=== PATIENT | female | born 1955 | race Caucasian/White ===

== ENCOUNTER → 2017-12-26 14:06 | Outpatient (CLI) | payer MEDICARE, SELFPAY ==
--- NOTE | 2017-12-26 14:12 | US_ITS ---
US thyroid HISTORY: ITS.REASON: THYROID NODULE ORDERING PHYSICIAN: Jeaneth Sainz MD PATIENT AGE: 62 years FINDINGS: The right lobe measures 5 x 1.8 x 2.7 cm with G knee is echogenicity with no discrete mass. The left lobe measures 4.3 x 1.4 x 1.9 cm also with diffuse heterogeneous echogenicity. A small hypoechoic nodules present along the lower pole on the left measuring 5 mm. The isthmus is unremarkable. IMPRESSION: Enlarged heterogeneous thyroid with small 5 mm hypoechoic nodule along the lower pole of the left
== END ==
PROVIDERS: Family Provider Family Medicine; PCP Family Medicine; Visit Provider Family Medicine
DX: E04.1 Nontoxic single thyroid nodule (principal)
CPT/HCPCS: 76536

== ENCOUNTER → 2018-01-03 11:24 | Outpatient (CLI) | payer MEDICARE, SELFPAY ==
[2018-01-04 20:15] LABS: Thyroid Peroxidase Antibodies 10 IU/mL (0-34)
[2018-01-08 06:14] LABS: Thyroid Stimulating Immunoglob <0.10 IU/L (0.00-0.55)
== END ==
PROVIDERS: Family Provider Family Medicine; PCP Family Medicine; Visit Provider Otolaryngology
DX: E01.0 Iodine-deficiency related diffuse (endemic) goiter (principal); E06.9 Thyroiditis, unspecified
CPT/HCPCS: 36415; 83520; 86376

== ENCOUNTER 2018-03-25 11:52 | Observation (INO) ==
--- NOTE | 2018-03-25 13:05 | Non-Invasive Vascular Report ---
"Venous Exam Indications: 729.5 Pain in limb. IMPRESSIONS Superficial vein thrombosis involving the right great saphenous vein Right lower extremity venous duplex evaluation. Doppler flow study including spectral analysis, color and tatum scale imaging. Patient status: Inpatient. CRITICAL FINDINGS - Reported to: Dr. Garces office - Read back and verified. - 03/25/18 - 1310 - +[facility] Tables: Venous flow and imaging: + + + + + |Location |Overall |Flow properties |Comments | + + + + + |Right common femoral |Patent |Normal phasicity; | | | | |spontaneous; normal | | | | |augmentation; | | | | |compressible | | + + + + + |Right saphenofemoral |Patent |Compressible | | |junction | | | | + + + + + |Right profunda femoral|Patent |Compressible | | + + + + + |Right femoral |Patent |Normal phasicity; | | | | |spontaneous; normal | | | | |augmentation; | | | | |compressible | | + + + + + |Right greater |Partially |Diminished |mid thigh.| |saphenous |occluded |phasicity; | | | | |diminished | | | | |spontaneity; | | | | |diminished | | | | |augmentation; | | | | |partially | | | | |compressible | | + + + + + |Right popliteal |Patent |Normal phasicity; | | | | |spontaneous; normal | | | | |augmentation; | | | | |compressible | | + + + + + |Right posterior tibial|Patent |Compressible | | + + + + + |Right peroneal |Patent |Compressible | | + + + + + |Right gastrocnemius |Patent |Compressible | | + + + + + |Right soleal |Patent |Compressible | | + + + + + (Report amended ) Electronically signed by: Russel Alexander [id number]"
--- NOTE | 2018-03-25 13:48 | Pharmacy Consult Notes ---
[facility] Pharmacy VTE Monitoring - Patient Demographics Admission date: 03/25/18 Report Date: 03/25/18 Time: 13:48 Allergies/Adverse Reactions: Patient Allergies ibuprofen [From ADVIL] Allergy (Unknown, Verified 01/16/18 13:38) I-HIVES mefenamic acid [From PONSTEL] Allergy (Unknown, Verified 01/16/18 13:38) I-HIVES Height: 1.73 m Weight: 129.274 kg - VTE Risk Was VTE Risk Assessment Performed: Yes VTE Risk Level: Very Low Risk - Prophylaxis VTE Prophylaxis Ordered?: Yes Types of VTE Prophylaxis: Pharmacological Pharmacologic Type: Enoxaparin - VTE Diagnosis Confirmed Treatment or plan recommended: Continue Current Treatment
[2018-03-25 14:17] LABS: Calcium 9.2 mg/dL (8.5-10.1)
[2018-03-25 14:18] LABS: INR 1.03 (0.9-1.1); Prothrombin Time 10.6 seconds (9.4-11.8)
[2018-03-25 14:35] LABS: Basophils # 0.1 K/mm3 (0-0.2); Basophils % 1.2 % (0.1-2.0); Eosinophils # 0.3 K/mm3 (0.0-0.4); Eosinophils % 2.8 % (0.1-12.0); Hematocrit 43.5 % (37.0-47.0); Hemoglobin 12.1 g/dL (12.2-16.2); Lymphocytes # 2.6 K/mm3 (0.7-4.5); Lymphocytes % 25.4 K/mm3 (10-50); Mean Corpuscular HGB Conc 27.8 g/dL (31.8-35.4); Mean Corpuscular Hemoglobin 21.7 pg (27.0-31.2); Mean Platelet Volume 7.4 fl (7.4-10.4); Monocytes # 0.5 K/mm3 (0.1-1.0); Monocytes % 5.3 % (1.7-9.3); Neutrophils # 6.6 K/mm3 (1.8-7.8); Neutrophils % 65.4 % (37.0-80.0); Platelet Count 493 K/mm3 (142-424); Red Blood Count 5.58 M/mm3 (4.20-5.40); Red Cell Distribution Width 16.3 % (11.5-17.5); White Blood Count 10.1 K/mm3 (4.8-10.8)
--- NOTE | 2018-03-25 15:52 | History & Physical Report ---
*Admission Date: 03/25/18 *Chief complaint: Right thigh pain *History of present illness: 62-year-old female with hypothyroidism presented to the office today with concern after development of a painful knot in the right thigh. Patient was being evaluated by Dr. Sainz and during examination he thought he detected an irregular heart rate and patient was found to be in atrial fibrillation. Patient herself reports episodes of racing heart that have developed over the last 2-3 weeks that can occurred today but she will also awaken at night with racing heart and shortness of breath. Patient apparently had an episode over the weekend where she felt ill and became diaphoretic and pale appearing as well. In addition to the symptoms patient endorsed recent episodes of sharp chest pain that had occurred after development of this not in the thigh. Because of the patient's new onset atrial fibrillation and concern over DVT as well as pulmonary embolism patient was admitted for workup. Patient denies fevers at home [facility] History Medical History: Reports:: Hyperlipidemia Denies:: Atherosclerotic Heart Disease, Cancer, Congestive Heart Failure, Diabetes Mellitus Type 1, Diabetes Mellitus Type 2, Hypertension, MRSA Other Medical History: Reports: Hormone Therapy, Hypothyroidism Laterality Cases: Bilateral: Other Other Surgeries: Yes: Colonoscopy, Tubal Ligation Amputation: No Fractures: No - *Social History Educational Level: Completed High School Smoking Status: Never smoker Alcohol Intake: never Substance Use Type: denies use Occupational Status: retired, disabled Housing: house Household Members: family - Psychiatric History Expresses thoughts of harming self/others: None Suicide Plan Description: No Plan *Family Hx:: Diabetes, Cancer, Heart Attack, Hyperlipidemia, Stroke, Asthma, Hypertension Review of Systems - Review of Systems Review of systems:: pertinent systems reviewed and negative unless documented below - Constitutional Denies body ache(s), Denies chills - *Cardiovascular Reports chest pain, Reports shortness of breath causing sudden awakening, Reports fast heart rate - *Respiratory Reports shortness of breath, Denies chest congestion, Denies cough - *Gastrointestinal Reports abdominal pain Meds Home Medications Medication Instructions Recorded Confirmed Type amitriptyline 50 mg tablet 50 mg PO HS 90 Days #90 01/03/18 03/25/18 History aspirin 81 mg tablet,delayed 81 mg PO DAILY 01/03/18 03/25/18 History release diazepam 10 mg tablet 10 mg PO Q6HP PRN 30 Days #120 01/03/18 03/25/18 History levothyroxine 75 mcg tablet 75 mcg PO DAILY 90 Days #90 01/03/18 03/25/18 History potassium chloride ER 20 mEq 20 mg PO BID 30 Days #60 01/03/18 03/25/18 History tablet,extended release(part/cryst) simvastatin 40 mg tablet 40 mg PO HS 01/03/18 03/25/18 History Tramadol HCl [Ultram 50mg 50 mg PO Q6HP PRN 03/25/18 03/25/18 History tablet] Allergies Allergy/AdvReac Type Severity Reaction Status Date / Time ibuprofen [From ADVIL] Allergy Unknown I-HIVES Verified 01/16/18 13:38 mefenamic acid [From PONSTEL] Allergy Unknown I-HIVES Verified 01/16/18 13:38 Exam Vital signs and Labs for Last 24 Hours: Temp Pulse Resp BP Pulse Ox 98.8 F 72 18 136/78 97 03/25/18 13:06 03/25/18 13:06 03/25/18 13:06 03/25/18 13:06 03/25/18 13:06 Laboratory Results - last 24 hr 03/25/18 14:00: WBC 10.1, RBC 5.58 H, Hgb 12.1 L, Hct 43.5, MCV 78.0 L, MCH 21.7 L, MCHC 27.8 L, RDW 16.3, Plt Count 493 H, MPV 7.4, Neut % (Auto) 65.4, Lymph % (Auto) 25.4, Ware % (Auto) 5.3, Eos % (Auto) 2.8, Baso % (Auto) 1.2, Neut # (Auto) 6.6, Lymph # (Auto) 2.6, Ware # (Auto) 0.5, Eos # (Auto) 0.3, Baso # (Auto) 0.1 03/25/18 14:00: PT 10.6, INR 1.03 03/25/18 14:00: Sodium 140, Potassium 4.0, Chloride 103, Carbon Dioxide 28, Anion Gap 13.0, BUN 12, Creatinine 0.90, Estimated Creat Clear 57, Estimated GFR 63, Est GFR ( Amer) 76, Glucose 85, Calcium 9.2 I & O for Last 24 hours: Intake & Output 03/23/18 03/24/18 03/25/18 03/26/18 11:59 11:59 11:59 11:59 Weight 285 lb Narrative: She appears comfortable and is in no distress. ENT exam is grossly normal. Neck is without thyromegaly or carotid bruits. Lungs are clear to auscultation. Heart rate is irregularly irregular. Abdomen is obese, soft, nontender, nondistended. Patient has a palpable mass in the medial right thigh consistent with possible swollen vein. She has no ankle or foot edema. Negative Homans sign H&P: Result - Labs Labs: Short CBC 03/25/18 Range/Units 14:00 WBC 10.1 (4.8-10.8) K/mm3 Hgb 12.1 L (12.2-16.2) g/dL Hct 43.5 (37.0-47.0) % Plt Count 493 H (142-424) K/mm3 BMP 03/25/18 14:00 Sodium 140 Potassium 4.0 Chloride 103 Carbon Dioxide 28 BUN 12 Creatinine 0.90 Glucose 85 Calcium 9.2 Assessment and Plan (1) New onset atrial fibrillation Current visit: Yes Status: Acute Category: Medical Code(s): I48.91 - Unspecified atrial fibrillation (2) Superficial vein thrombosis Current visit: Yes Status: Acute Category: Medical Code(s): I82.890 - Acute embolism and thrombosis of other specified veins (3) Hypothyroidism Current visit: Yes Status: Acute Category: Medical Code(s): E03.9 - Hypothyroidism, unspecified - Assessment and plan all Dx Assessment and Plan for all problems:: 1. Await echocardiogram. Patient has been given subcutaneous Lovenox as an anticoagulant. In regards to her atrial fibrillation at this time her chads vasc 2 score is 1. However due to the simultaneous superficial vein thrombosis of the greater saphenous vein patient will be maintained on an anticoagulant at this time. 2. Check TSH
--- NOTE | 2018-03-25 19:22 | Cardiology Report ---
PROCEDURE: 2-D M-mode and color Doppler study INDICATIONS FOR THE TEST: Chest pain COPD Heart Murmur Tobacco Smoking Palpitations+ Fatigue Syncope Edema+ Hypertension Diabetes Mellitus Rheumatic Fever SOB+BANEGAS+Obesity+Hyperlipidemia+ Family History HD+ Additional History chest heaviness x 4 days, near syncope PATIENT INFORMATION HEIGHT: 68 WEIGHT: 283 GENDER: Female B/P: 140/90 2-D/M-MODE INTERPRETATION: 2-D MEASUREMENTS OBSERVED VALUES IN CMS Right Ventricular Dimension (RVDd) 2.1 Interventricular Septum (Thickness)(IVsd) 0.9 Left Ventricular Internal Dimensions(LVIDd) 5.4 Left Ventricular Posterior Wall (Thickness)(LVPWd) 1.0 Aortic Root 2.8 Aortic Cusp Separation 2.1 Left Atrial Dimensions (LAD) 3.8 2D 1. Left atrium is moderately enlarged, left ventricle is normal size, there is no concentric left ventricular hypertrophy, visually estimated ejection fraction 50% with no obvious regional wall motion abnormality. 2. The right atrium is mildly enlarged, right ventricle is mildly dilated with normal contractility. 3. The aortic valve is minimally thickened and fibrosed. 4. The mitral valve has mitral calcification, there is no mitral stenosis. 5. The tricuspid valve is grossly normal. 6. The pulmonic valve is poorly visualized. 7. No significant pericardial effusion noted. DOPPLER INTERROGATION: Doppler interrogation of the aortic, mitral and tricuspid valvular presence of mild mitral and tricuspid regurgitation, tricuspid regurgitant jet velocity is insufficient for calculation of the right ventricular systolic pressure, diastolic parameters are inconclusive. CONCLUSION: 1. Biatrial enlargement, normal left ventricular size, visually estimated ejection fraction 50% with no obvious regional wall motion abnormality, diastolic parameters are inconclusive. 2. Mildly enlarged right ventricle with normal contractility. 3. Mild mitral and tricuspid regurgitation 4. No significant pericardial effusion noted.
[2018-03-26 05:33] VITALS: BP 118/74
--- NOTE | 2018-03-26 07:35 | Discharge Summary ---
General - General Admission date:: 03/25/18 Discharge date: 03/26/18 HPI HPI: 62-year-old female with hypothyroidism presented to the office today with concern after development of a painful knot in the right thigh. Patient was being evaluated by Dr. Sainz and during examination he thought he detected an irregular heart rate and patient was found to be in atrial fibrillation. Patient herself reports episodes of racing heart that have developed over the last 2-3 weeks that can occurred today but she will also awaken at night with racing heart and shortness of breath. Patient apparently had an episode over the weekend where she felt ill and became diaphoretic and pale appearing as well. In addition to the symptoms patient endorsed recent episodes of sharp chest pain that had occurred after development of this not in the thigh. Because of the patient's new onset atrial fibrillation and concern over DVT as well as pulmonary embolism patient was admitted for workup. Patient denies fevers at home Hospital Course Hospital Course: Patient was admitted for additional testing. Venous Doppler of the right lower extremity revealed a superficial vein thrombosis of the greater saphenous vein in the proximal thigh. CT angiogram of the chest was negative for pulmonary embolism. EKG revealed rate controlled atrial fibrillation. Echocardiogram showed left atrial diameter of 3.8 cm with normal ejection fraction of 50%. Decision was made to place the patient on Xarelto 20 mg daily. She will follow- up in the office in 3 weeks for reexamination of the thigh. Objective Vital signs: Temp Pulse Resp BP Pulse Ox 98.4 F 65 16 118/74 90 L 03/26/18 04:00 03/26/18 04:00 03/26/18 04:00 03/26/18 04:00 03/26/18 04:00 Results Labs on day of discharge: Labs from last 24 hours 03/25/18 03/25/18 03/25/18 14:00 14:00 14:00 WBC RBC Hgb Hct MCV MCH MCHC RDW Plt Count MPV Neut % (Auto) Lymph % (Auto) Ford % (Auto) Eos % (Auto) Baso % (Auto) Neut # (Auto) Lymph # (Auto) Ford # (Auto) Eos # (Auto) Baso # (Auto) PT 10.6 INR 1.03 Sodium 140 Potassium 4.0 Chloride 103 Carbon Dioxide 28 Anion Gap 13.0 BUN 12 Creatinine 0.90 Estimated Creat Clear 57 Estimated GFR 63 Est GFR ( Amer) 76 Glucose 85 Calcium 9.2 TSH 1.45 03/25/18 14:00 WBC 10.1 RBC 5.58 H Hgb 12.1 L Hct 43.5 MCV 78.0 L MCH 21.7 L MCHC 27.8 L RDW 16.3 Plt Count 493 H MPV 7.4 Neut % (Auto) 65.4 Lymph % (Auto) 25.4 Ford % (Auto) 5.3 Eos % (Auto) 2.8 Baso % (Auto) 1.2 Neut # (Auto) 6.6 Lymph # (Auto) 2.6 Ford # (Auto) 0.5 Eos # (Auto) 0.3 Baso # (Auto) 0.1 PT INR Sodium Potassium Chloride Carbon Dioxide Anion Gap BUN Creatinine Estimated Creat Clear Estimated GFR Est GFR ( Amer) Glucose Calcium TSH DS: Diagnosis - Discharge Diagnosis (1) New onset atrial fibrillation Status: Acute (2) Superficial vein thrombosis Status: Acute (3) Hypothyroidism Status: Acute Discharge Plan - Patient Discharge Instructions ACTIVITY: Continue current activity DIET: continue same diet - Follow up Plan Follow up with: Austin Garces MD [Primary Care Provider] - 04/14/18 11:30 am Disposition: Home, Self-[facility] Medications: Home Medications Medication Instructions Recorded Confirmed Type amitriptyline 50 mg tablet 50 mg PO HS 90 Days #90 01/03/18 03/25/18 History aspirin 81 mg tablet,delayed 81 mg PO DAILY 01/03/18 03/25/18 History release diazepam 10 mg tablet 10 mg PO Q6HP PRN 30 Days #120 01/03/18 03/25/18 History levothyroxine 75 mcg tablet 75 mcg PO DAILY 90 Days #90 01/03/18 03/25/18 History potassium chloride ER 20 mEq 20 mg PO BID 30 Days #60 01/03/18 03/25/18 History tablet,extended release(part/cryst) simvastatin 40 mg tablet 40 mg PO HS 01/03/18 03/25/18 History Tramadol HCl [Ultram 50mg 50 mg PO Q6HP PRN 03/25/18 03/25/18 History tablet] Prescriptions/Medication Reconciliation: New Rivaroxaban [Xarelto] 20 mg PO DAILY #30 tablet Metoprolol Succinate [Toprol XL 25mg tablet] 25 mg PO DAILY #30 tab Continue potassium chloride ER 20 mEq tablet,extended release(part/cryst) 20 mg PO BID 30 Days #60 levothyroxine 75 mcg tablet 75 mcg PO DAILY 90 Days #90 amitriptyline 50 mg tablet 50 mg PO HS 90 Days #90 aspirin 81 mg tablet,delayed release 81 mg PO DAILY simvastatin 40 mg tablet 40 mg PO HS diazepam 10 mg tablet 10 mg PO Q6HP PRN 30 Days #120 PRN Reason: Anxiety Tramadol HCl [Ultram 50mg tablet] 50 mg PO Q6HP PRN PRN Reason: PAIN
== END 2018-03-26 08:25 | disposition home or self-care (01) ==
LOC: 2ND
PROVIDERS: ADMIT Family Medicine; ATTEND Family Medicine

== ENCOUNTER → 2018-04-30 11:21 | Outpatient (CLI) | payer MEDICARE, SELFPAY ==
--- NOTE | 2018-04-30 11:22 | NM_ITS ---
History and Indications: Hyperlipidemia, family history, dysrhythmia, chest pain, shortness of breath palpitations and syncope and fatigue Procedure: Patient received a 0.4 mg of Lexiscan, resting heart rate was 112 beats prominent, resting blood pressure 102/41, with Lexiscan maximum heart rate achieved was 1 26 bpm which is less than 85% of the maximum predicted heart rate and a blood pressure was 100/40. With Lexiscan patient complained of chest heaviness and nausea. Electrocardiogram: Resting electrocardiogram showed atrial fibrillation, with Lexiscan there is less than 1.[address] segment depression noted from the baseline EKG. The EKG portion of the Lexiscan Myoview is nondiagnostic Cardiac stress and resting SPECT images: Cardiac stress and rest SPECT images were obtained using technetium 99 Myoview 32.2 mCi at stress than 10.2 mCi at rest, gated SPECT further analysis of segmental wall motion and calculation of ejection fraction also done. Cardiac stress and the suspect images show mild fixed defect in the anterior wall with normal contractility on the gated SPECT is likely secondary to soft tissue attenuation, no reversible ischemia seen. Computer derived ejection fraction is 62% with no obvious regional wall motion abnormality, right ventricle is normal size and contractility. Conclusion: 1. The EKG portion of the Lexiscan Myoview is nondiagnostic. 2. No obvious scintigraphic evidence of reversible ischemia seen, computer derived ejection fraction is 62% with no obvious regional wall motion abnormality, right ventricle is normal size and contractility.
--- NOTE | 2018-04-30 13:29 | CI_ITS ---
Cerebrovascular Exam Indications: 780.4 Dizziness and giddiness. IMPRESSIONS 1. The bilateral vertebral arteries are patent with normal antegrade flow. 2. Study suggests less than 20% stenosis involving the right internal carotid artery and the left internal carotid artery. Carotid duplex study. Complete study and Doppler flow study including spectral analysis, color and tatum scale imaging. Height: Height: 172.7cm. Height: 68in. Weight: Weight: 129.3kg. Weight: 284.4lb. Body mass index: BMI: 43.3kg/m^2. Body surface area: BSA: 2.56m^2. Location: Vascular laboratory. Patient status: Outpatient. Tables: Arterial flow: + +--------+--------+ Location V sys V ed + +--------+--------+ Right CCA - proximal 127cm/s 18.9cm/s + +--------+--------+ Right CCA - distal 92.7cm/s 27.5cm/s + +--------+--------+ Right ECA 112cm/s -------- + +--------+--------+ Right ICA - proximal 66cm/s 25.8cm/s + +--------+--------+ Right ICA - mid 73.5cm/s 30.8cm/s + +--------+--------+ Right ICA - distal 84.9cm/s 25.8cm/s + +--------+--------+ Right vertebral 59.1cm/s -------- + +--------+--------+ Left CCA - proximal 101cm/s 22cm/s + +--------+--------+ Left CCA - distal 83cm/s 22.6cm/s + +--------+--------+ Left ECA 86.8cm/s -------- + +--------+--------+ Left ICA - proximal 69.5cm/s 24cm/s + +--------+--------+ Left ICA - mid 68.4cm/s 26.7cm/s + +--------+--------+ Left ICA - distal 69.9cm/s 27.1cm/s + +--------+--------+ Left vertebral 38.1cm/s -------- + +--------+--------+ Velocity ratios: + + + + + + Right, V sys Right, V ed Left, V sys Left, V ed + + + + + + Max ICA/dist CCA 0.92 1.12 0.84 1.2 + + + + + + (Report amended ) Electronically signed by: Juanito Rollins [id number]
--- NOTE | 2018-04-30 13:39 | HMH.ITSHM ---
aspirin simvastatin levothyroxine amitripyline potassium metoprlol diazepam tramadol
== END ==
PROVIDERS: Family Provider Family Medicine; PCP Family Medicine; Visit Provider Internal Medicine Cardiovascular Disease
DX: R07.89 Other chest pain (principal); R06.09 Other forms of dyspnea; R42 Dizziness and giddiness; R94.31 Abnormal electrocardiogram [ECG] [EKG]
CPT/HCPCS: 78452; 93017; 93880; A9502; G0399; J2785

== ENCOUNTER → 2018-07-22 12:08 | Outpatient (CLI) | payer MEDICARE, SELFPAY ==
--- NOTE | 2018-07-22 12:13 | US_ITS ---
US thyroid HISTORY: Follow-up nodule ITS.REASON: hypothyroid, goiter ORDERING PHYSICIAN: Samuel Camacho MD PATIENT AGE: 63 years Comparison: None FINDINGS: The right lobe is 4.9 x 2 x 2.3 cm with diffuse heterogeneous echogenicity but no discrete nodule. The left lobe is 4.2 x 1.5 x 1.8 cm also showing heterogeneous echogenicity. A 6 x 4 mm area of mixed echogenicity is present along the lower pole slightly decreased in size and now more hypoechoic compared to the previous exam. The isthmus is 4 mm in thickness. IMPRESSION: 1. Thyromegaly. 2. Hypoechoic nodule lower pole on the left slightly smaller
== END ==
PROVIDERS: PCP Family Medicine; Visit Provider Otolaryngology
DX: E03.9 Hypothyroidism, unspecified (principal); E04.9 Nontoxic goiter, unspecified
CPT/HCPCS: 76536

== ENCOUNTER → 2018-08-18 14:16 | Outpatient (CLI) | payer MEDICARE, SELFPAY ==
--- NOTE | 2018-08-18 14:19 | NVE_ITS ---
Venous Exam Indications: 729.5 Pain in limb. 782.3 Edema. Pt on Xarelto and ASA. Pt had IV in left AC last Saturday. Bruising pain medial mid forearm. IMPRESSIONS No evidence of deep or superficial vein thrombosis involving the veins of the left upper extremity History: Left upper extremity pain. Swelling in the left upper extremity. PMH: Deep vein thrombosis. Left upper extremity venous duplex. Doppler flow study including spectral analysis, color and tatum scale imaging. CRITICAL FINDINGS - [facility] 15:00 Tables: Venous flow and imaging: + + + Location Flow properties + + + Left internal jugular Normal phasicity; spontaneous; compressible + + + Left subclavian Normal phasicity; spontaneous; normal augmentation; compressible + + + Left axillary Normal phasicity; spontaneous; normal augmentation; compressible + + + Left brachial Normal phasicity; spontaneous; normal augmentation; compressible + + + Left cephalic Normal phasicity; spontaneous; normal augmentation; compressible + + + Left basilic Normal phasicity ; spontaneous; normal augmentation; compressible + + + Left radial Compressible + + + Left ulnar Compressible + + + Right subclavian Normal phasicity; spontaneous; normal augmentation; compressible + + + (Report amended ) Electronically signed by: Juanito Rollins [id number]
== END ==
PROVIDERS: PCP Family Medicine; Visit Provider Urology
DX: Z86.718 Personal history of other venous thrombosis and embolism (principal)
CPT/HCPCS: 93971

== ENCOUNTER → 2018-08-21 08:15 | Outpatient (CLI) | payer MEDICARE, SELFPAY ==
[2018-08-21 11:21] LABS: Anion Gap 15.1 mEq/L (5-15); Blood Urea Nitrogen 15 mg/dL (7-18); Calcium 8.9 mg/dL (8.5-10.1); Carbon Dioxide 27 mmol/L (21.0-32.0); Chloride 102 mmol/L (98-107); Creatinine,Serum 1.11 mg/dL (0.55-1.02); Estimated Glomerular Filt Rate 49 ml/min (>60); GFR (African American) 60 ML/MIN (>60); Glucose 106 mg/dL (74-106); Potassium 4.1 mmoL/L (3.5-5.1); Sodium 140 mmol/L (136-145)
== END ==
PROVIDERS: Visit Provider Urology
DX: I25.10 Atherosclerotic heart disease of native coronary artery without angina pectoris (principal)
CPT/HCPCS: 36415; 80048

== ENCOUNTER → 2018-10-13 17:00 | Outpatient (CLI) | payer MEDICARE, SELFPAY ==
[2018-10-13 22:00] LABS: Ferritin 8 ng/mL (8-388); Iron 19 ug/dl (28-170)
== END ==
PROVIDERS: Visit Provider Specialist
DX: D64.9 Anemia, unspecified (principal)
CPT/HCPCS: 36415; 82728; 83540

== ENCOUNTER → 2019-01-20 12:40 | Outpatient (CLI) | payer MEDICARE, SELFPAY ==
--- NOTE | 2019-01-20 12:42 | US_ITS ---
US thyroid HISTORY: Follow-up thyroid nodule ITS.REASON: thyroid nodule ORDERING PHYSICIAN: Samuel Camacho MD PATIENT AGE: 63 years Comparison: 07/22/2018 FINDINGS: The right lobe is 4.5 x 1.4 x 1.9 cm. There is diffuse heterogeneous echogenicity of the right lobe with no discrete nodule apparent not significant change. The left lobe is 5.9 x 1.9 x 2.1 cm. A 9 mm hypoechoic nodule is present in the lower pole on the left not significant change. No new nodules evident. IMPRESSION: Enlarged thyroid gland with heterogeneous echogenicity on the right and a 9 mm isoechoic nodule in the lower pole on the left.
== END ==
PROVIDERS: PCP Family Medicine; Visit Provider Otolaryngology
DX: E03.9 Hypothyroidism, unspecified (principal); E04.1 Nontoxic single thyroid nodule
CPT/HCPCS: 76536

== ENCOUNTER → 2019-03-24 09:49 | Outpatient (CLI) | payer MEDICARE, SELFPAY ==
--- NOTE | 2019-03-24 09:50 | CA_ITS ---
PROCEDURE: 2-D M-mode and color Doppler study INDICATIONS FOR THE TEST: Chest pain COPD Heart Murmur Tobacco Smoking Palpitations Fatigue Syncope EdemaX HypertensionXDiabetes Mellitus Rheumatic Fever SOBXDOE ObesityXHyperlipidemiaX Family History HD Additional History H/O AF,RECENT ABLATION PATIENT INFORMATION HEIGHT: 68 WEIGHT:286 GENDER: Female B/P:111/39 2-D/M-MODE INTERPRETATION: 2-D MEASUREMENTS OBSERVED VALUES IN CMS Right Ventricular Dimension (RVDd) 1.8 Interventricular Septum (Thickness)(IVsd) 1.0 Left Ventricular Internal Dimensions(LVIDd) 5.7 Left Ventricular Posterior Wall (Thickness)(LVPWd) .8 Aortic Root 2.7 Aortic Cusp Separation 1.6 Left Atrial Dimensions (LAD) 3.6 2D 1. Left atrium is mildly enlarged, left ventricle is normal size, mild concentric left ventricular hypertrophy, visually estimated ejection fraction 55% with no regional wall motion abnormality. 2. The right atrium and right ventricle are mildly enlarged with normal contractility. 3. The aortic valve is minimally thickened and fibrosed. 4. The mitral and tricuspid valve leaflets are minimally thickened 5. The pulmonic valve is poorly visualized. 6. No significant pericardial effusion noted. DOPPLER INTERROGATION: Doppler interrogation of the aortic, mitral and tricuspid valvular presence of mild mitral and tricuspid regurgitation, calculated right ventricular systolic pressure is 49 mmHg consistent with moderate pulmonary hypertension, diastolic parameters are inconclusive. Inferior vena cava is normal size with normal inspiratory collapse. CONCLUSION: 1. Mild biatrial enlargement, normal left ventricular size, mild concentric left ventricular hypertrophy, visually estimated ejection fraction 55% with no regional wall motion abnormality, diastolic parameters are inconclusive. 2. Enlarged right ventricle with normal contractility. 3. Mild mitral and tricuspid regurgitation, calculated right ventricular systolic pressure is 49 mmHg consistent with moderate pulmonary hypertension. 4. No significant pericardial effusion noted.
== END ==
PROVIDERS: PCP Family Medicine; Visit Provider Internal Medicine Cardiovascular Disease
DX: R06.09 Other forms of dyspnea; I48.2 Chronic atrial fibrillation; I25.118 Atherosclerotic heart disease of native coronary artery with other forms of angina pectoris; E78.2 Mixed hyperlipidemia; I10 Essential (primary) hypertension; Z79.01 Long term (current) use of anticoagulants; Z98.890 Other specified postprocedural states
CPT/HCPCS: 93306

== ENCOUNTER → 2019-05-06 12:33 | Outpatient (CLI) | payer MEDICARE, SELFPAY ==
--- NOTE | 2019-05-06 12:46 | US_ITS ---
PROCEDURE: US THYROID CLINICAL INDICATION: thyroid nodule Follow-up thyroid nodule COMPARISON: THY US thyroid from 01/20/2019 FINDINGS: Right lobe: 4.8 x 1.6 x 1.9 cm. There is heterogeneous echogenicity without discrete nodule. Left lobe: 4.3 x 1.1 x 1.4 cm with diffuse heterogeneous echogenicity. A 1 cm isoechoic/hypoechoic nodules present in the lower pole unchanged Isthmus: Unremarkable Additional findings: IMPRESSION: Overall no change in the enlarged thyroid gland with diffuse heterogeneous echogenicity and a 1 cm nodule in the lower pole on the left Dictated by: Juanito Rollins MD 05/06/2019 17:20 Signed by: <Electronically signed by Juanito Rollins MD in [place]> 05/06/2019 17:20
[2019-05-06 14:28] LABS: Free T4 (Free Thyroxine) 1.31 ng/dl (0.76-1.46); Thyroid Stimulating Hormone 1.16 uIU/ml (0.358-3.740)
== END ==
PROVIDERS: Visit Provider Otolaryngology
DX: E03.9 Hypothyroidism, unspecified (principal); E04.1 Nontoxic single thyroid nodule
CPT/HCPCS: 36415; 76536; 84439; 84443

== ENCOUNTER → 2019-07-23 14:02 | Outpatient (CLI) | payer MEDICARE, SELFPAY ==
[2019-07-23 16:15] LABS: Anion Gap 10.6 mEq/L (5-15); Blood Urea Nitrogen 18 mg/dL (7-18); Calcium 9.4 mg/dL (8.5-10.1); Carbon Dioxide 30 mmol/L (21.0-32.0); Chloride 103 mmol/L (98-107); Creatinine,Serum 0.94 mg/dL (0.55-1.02); Estimated Glomerular Filt Rate 60 ml/min (>60); GFR (African American) 72 ML/MIN (>60); Glucose 93 mg/dL (74-106); Potassium 4.6 mmoL/L (3.5-5.1); Sodium 139 mmol/L (136-145)
== END ==
PROVIDERS: Visit Provider Internal Medicine Cardiovascular Disease
DX: I25.10 Atherosclerotic heart disease of native coronary artery without angina pectoris; R06.00 Dyspnea, unspecified; E78.5 Hyperlipidemia, unspecified; I10 Essential (primary) hypertension; I48.91 Unspecified atrial fibrillation; Z79.01 Long term (current) use of anticoagulants; Z98.890 Other specified postprocedural states
CPT/HCPCS: 36415; 80048

== ENCOUNTER → 2019-08-14 12:57 | Outpatient (CLI) | payer MEDICARE, SELFPAY ==
[2019-08-14 15:58] LABS: Anion Gap 11.6 mEq/L (5-15); Blood Urea Nitrogen 20 mg/dL (7-18); Calcium 9.5 mg/dL (8.5-10.1); Carbon Dioxide 31 mmol/L (21.0-32.0); Chloride 103 mmol/L (98-107); Creatinine,Serum 0.93 mg/dL (0.55-1.02); Estimated Glomerular Filt Rate 60 ml/min (>60); GFR (African American) 73 ML/MIN (>60); Glucose 119 mg/dL (74-106); Potassium 4.6 mmoL/L (3.5-5.1); Sodium 141 mmol/L (136-145)
== END ==
PROVIDERS: Visit Provider Internal Medicine Cardiovascular Disease
DX: E78.5 Hyperlipidemia, unspecified (principal); I10 Essential (primary) hypertension; I25.10 Atherosclerotic heart disease of native coronary artery without angina pectoris; I48.91 Unspecified atrial fibrillation; R06.00 Dyspnea, unspecified; Z79.01 Long term (current) use of anticoagulants
CPT/HCPCS: 36415; 80048

== ENCOUNTER → 2020-03-25 15:13 | Outpatient (CLI) | payer MEDICARE, SELFPAY ==
--- NOTE | 2020-03-25 15:14 | US_ITS ---
PROCEDURE: US TRANSVAGINAL CLINICAL INDICATION: Post menopausal bleeding COMPARISON: No exams were available for comparison FINDINGS: Endometrium is slightly thickened for a postmenopausal patient measuring up to 9 mm in thickness. No adnexal mass or cul-de-sac fluid. UTERUS: 6cm x 4cmx 3cm with a combined endometrial thickness of 8.8mm LEFT OVARY: 1boa9uli5.5cm with a volume of 2.1ml. RIGHT OVARY: 4lid5pmf2mm with a volume of 2.8ml. IMPRESSION: Thickened endometrium otherwise negative pelvic ultrasound. Dictated by: Juanito Rollins MD 03/25/2020 16:18 Electronically signed by Juanito Rollins MD in [place] 03/25/2020 16:18
== END ==
PROVIDERS: PCP Family Medicine; Visit Provider Nurse Practitioner Obstetrics & Gynecology
DX: N95.0 Postmenopausal bleeding (principal)
CPT/HCPCS: 76830

== ENCOUNTER → 2020-04-25 11:23 | Outpatient (CLI) | payer MEDICARE, SELFPAY ==
--- NOTE | 2020-04-25 11:25 | XR_ITS ---
PROCEDURE: XR FOOT WT BEARING LT 3V CLINICAL INDICATION: pain COMPARISON: No exams were available for comparison FINDINGS: No fracture or dislocation. No lytic or blastic change. There is normal mineralization. Mild hallux valgus with mild osteoarthritic change of the 1st MTP joint and minimal lateral subluxation of the proximal phalanx of the great toe. There is a lytic/cystic lesion involving the distal aspect of the 1st metatarsal measuring 11 mm and may be due to sub chondral cyst. An enchondroma would be included in the differential diagnosis. Other findings:Mild pes planus IMPRESSION: Hallux valgus with osteoarthritis at the 1st MTP joint with nonspecific specific cystic lesion at the distal aspect of the 1st metatarsal Dictated by: Juanito Rollins MD 04/25/2020 12:13 Juanito Rollins MD in [place] 04/25/2020 12:13
--- NOTE | 2020-04-25 11:25 | XR_ITS ---
PROCEDURE: XR ANKLE WT BEARING LT MIN 3V CLINICAL INDICATION: pain COMPARISON: No exams were available for comparison FINDINGS: No fracture, dislocation, lytic change, or blastic change evident. No significant degenerative change IMPRESSION: No acute findings. Dictated by: Juanito Rollins MD 04/25/2020 12:09 Juanito Rollins MD in [place] 04/25/2020 12:09
--- NOTE | 2020-04-25 11:25 | XR_ITS ---
PROCEDURE: XR ANKLE WT BEARING RT MIN 3V CLINICAL INDICATION: pain COMPARISON: No exams were available for comparison FINDINGS: No fracture, dislocation, lytic change, or blastic change evident. No significant degenerative change IMPRESSION: No acute findings. Dictated by: Juanito Rollins MD 04/25/2020 12:08 Juanito Rollins MD in [place] 04/25/2020 12:08
--- NOTE | 2020-04-25 11:25 | XR_ITS ---
PROCEDURE: XR FOOT WT BEARING RT 3V CLINICAL INDICATION: pain COMPARISON: No exams were available for comparison FINDINGS: No fracture or dislocation. No lytic or blastic change. There is normal mineralization. Mild hallux valgus with osteoarthritis at the 1st MTP joint. There is mild lateral subluxation of the proximal phalanx of the great toe. Small well-circumscribed calcific density is noted at the distal medial aspect of 1st metatarsal consistent with some dystrophic calcification or old injury. There is mild medial subluxation of the sesamoid at the distal aspect of the 1st metatarsal. There is borderline pes planus IMPRESSION: Hallux valgus with osteoarthritis of the 1st MTP joint with borderline pes planus Dictated by: Juanito Rollins MD 04/25/2020 12:11 Juanito Rollins MD in [place] 04/25/2020 12:11
== END ==
PROVIDERS: PCP Family Medicine; Visit Provider Podiatrist
DX: M25.572 Pain in left ankle and joints of left foot (principal); M25.571 Pain in right ankle and joints of right foot
CPT/HCPCS: 73610; 73630

== ENCOUNTER → 2020-04-29 14:17 | Outpatient (CLI) | payer MEDICARE, SELFPAY ==
--- NOTE | 2020-04-29 14:19 | US_ITS ---
APPROVED REPORT Exam Type: Lower Extremity Segmental Pressures Chief Controller: Tyesha Anderson RDCS Indications Claudication: Rest Pain: Pressures/Indices Right Indices Left Indices Brachial 147.00 mmHg Brachial 142.00 mmHg Low Thigh 144.00 mmHg 0.98 Low Thigh 146.00 mmHg 0.99 Calf 149.00 mmHg 1.01 Calf 153.00 mmHg 1.04 Ankle(PT) 153.00 mmHg 1.04 Ankle(PT) 149.00 mmHg 1.01 Ankle(DP) 140.00 mmHg 0.95 Ankle(DP) 150.00 mmHg 1.02 Digit 171.00 mmHg 1.16 Digit 149.00 mmHg 1.01 Findings R DEYVI 1.0 L DEYVI 1.0 R TBI 1.2 L TBI 1.0 NORMAL PULSES AND NORMAL PULSES Conclusion R DEYVI 1.0 L DEYVI 1.0 R TBI 1.2 L TBI 1.0 NORMAL PULSES AND NORMAL PULSES Normal appearing resting noninvasive lower extremity arterial study. Electronically signed by : Juanito Rollins MD 04/29/2020 16:20:30
== END ==
PROVIDERS: PCP Family Medicine; Visit Provider Podiatrist
DX: R09.89 Other specified symptoms and signs involving the circulatory and respiratory systems (principal); S93.492A Sprain of other ligament of left ankle, initial encounter; M19.072 Primary osteoarthritis, left ankle and foot
CPT/HCPCS: 93923

== ENCOUNTER → 2020-05-18 13:10 | Outpatient (CLI) | payer MEDICARE, SELFPAY ==
--- NOTE | 2020-05-18 13:29 | US_ITS ---
PROCEDURE: US THYROID CLINICAL INDICATION: Hypothyroid COMPARISON: US US THYROID from 05/06/2019 FINDINGS: The isthmus is prominent at 4 mm. The right lobe is enlarged at 5 x 1.7 x 1.9 cm with heterogeneous echogenicity. No discrete nodule. The left lobe is 4 x 1.6 x 1.8 cm with heterogeneous echogenicity. There is a stable 10 x 6 mm mixed nodule in the lower pole not significantly changed IMPRESSION: Overall no significant change in the 10 mm nodule of the left lobe with enlarged right lobe with bilateral heterogeneous echogenicity Dictated by: Juanito Rollins MD 05/18/2020 17:59 Juanito Rollins MD in [place] 05/18/2020 17:59
[2020-05-18 14:58] LABS: Free T4 (Free Thyroxine) 1.17 ng/dl (0.78-2.19)
[2020-05-18 15:13] LABS: Thyroid Stimulating Hormone 1.11 uIU/mL (0.465-4.68)
[2020-05-20 10:08] LABS: Thyroid Peroxidase Antibodies <9 IU/mL (0-34)
[2020-05-21 09:23] LABS: Thyroid Stimulating Immunoglob <0.10 IU/L (0.00-0.55)
== END ==
PROVIDERS: PCP Family Medicine; Visit Provider Otolaryngology
DX: E03.9 Hypothyroidism, unspecified (principal)
CPT/HCPCS: 36415; 76536; 84439; 84443; 84445; 86376

== ENCOUNTER → 2020-06-11 11:31 | Outpatient (CLI) | payer MEDICARE, SELFPAY ==
[2020-06-11 11:51] LABS: Basophils # 0.1 K/mm3 (0-0.2); Basophils % 0.7 % (0.1-2.0); Eosinophils # 0.4 K/mm3 (0.0-0.4); Eosinophils % 5.1 % (0.1-12.0); Hematocrit 41.8 % (37.0-47.0); Hemoglobin 14.1 g/dL (12.2-16.2); Lymphocytes # 1.5 K/mm3 (0.7-4.5); Lymphocytes % 18.3 % (10-50); Mean Corpuscular HGB Conc 33.7 g/dL (31.8-35.4); Mean Corpuscular Volume 92.1 fl (81-99); Mean Platelet Volume 8.3 fl (7.4-10.4); Monocytes # 0.4 K/mm3 (0.1-1.0); Monocytes % 5.3 % (1.7-9.3); Neutrophils # 5.7 K/mm3 (1.8-7.8); Neutrophils % 70.5 % (37.0-80.0); Platelet Count 353 K/mm3 (142-424); Red Blood Count 4.53 M/mm3 (4.20-5.40); Red Cell Distribution Width 14.3 % (11.5-17.5); White Blood Count 8.1 K/mm3 (4.8-10.8)
--- NOTE | 2020-06-11 11:57 | ECG_ITS ---
APPROVED REPORT Exam: Resting ECG HR:64 bpm ECG Measurements Heart Rate 64 AXES UT 216 P 30 QRSd 90 QRS -12 QT 434 T 18 QTc 447 <Conclusion> Sinus rhythm with 1st degree AV block Otherwise normal ECG Electronically signed by : Austin Huston, 06/12/2020 09:02:39
[2020-06-11 12:55] LABS: Coronavirus 19 IgG Antibody Negative (Negative); Coronavirus 19 IgM Antibody Negative (Negative)
[2020-06-11 14:24] LABS: Chloride 102 mmol/L (98-107); Potassium 3.9 mmoL/L (3.5-5.1); Sodium 140 mmol/L (136-145)
[2020-06-11 14:27] LABS: Blood Urea Nitrogen 17 mg/dl (7-17); Estimated Glomerular Filt Rate 63 ml/min (>60); GFR (African American) 76 ML/MIN (>60)
[2020-06-11 14:28] LABS: Anion Gap 15.9 mEq/L (5-15); Calcium 9.5 mg/dl (8.4-10.2); Carbon Dioxide 26 mmol/L (22.0-30.0); Glucose 163 mg/dl (74-100)
== END ==
PROVIDERS: Visit Provider Nurse Practitioner Obstetrics & Gynecology
DX: Z01.89 Encounter for other specified special examinations (principal); R10.2 Pelvic and perineal pain; N84.0 Polyp of corpus uteri
CPT/HCPCS: 36415; 80048; 85025; 86328; 93005

== ENCOUNTER 2020-06-13 06:54 | Day surgery (SDC) | payer MEDICARE, SELFPAY ==
[2020-06-09 10:47] VITALS: BMI 43.3
[2020-06-13] VITALS (9 sets, daily range): BP systolic 105–153; BP diastolic 58–81; PULSE 60–72; RESP 16–18; TEMP 36.5–43; O2SAT 93–99
--- NOTE | 2020-06-13 08:06 | P.PN_ITS ---
[facility] Anesthesia Checklist - Patient Identification Patient Identification: Arm Band, Verbal (Name & ) - Structural Data Admitted From: Home Planned Operative Procedure/s: Hysteroscopy, D&C, Myosure Consent for Planned Operative Procedure(s) Verified: Yes Verified Documents: Surgical Consent, History and Physical - NPO Status Verified Time NPO: 23:00 - Chart Verification Results Verified: CBC, BMP - Additional verifications Patient : No Anesthesia Reactions: No Hx Blood Transfusions: No - Airway Assessment C-Spine Mobility Assessed: Yes (MP 2, TMD 3, Full neck ROM) TMJ Mobility Assessed: Yes Dentition: Good Dentition - Neurological Assessment Level of Consciousness: Awake, Alert, Appropriate, Follows Commands Hx Seizures: No Numbness or tingling in extremities: No - Anesthesia Plan Anesthesia Risk discussed: Yes Anesthesia Plan: Verified ASA Class: III Anesthesia Type: General [facility] History I have reviewed the patient's past medical history: Yes Medical History: Reports:: Anxiety, Atrial Fibrillation, Deep Vein Thrombosis, Gastroesophageal Reflux Disease(GERD), Hyperlipidemia, Hypertension Denies:: Atherosclerotic Heart Disease, Cancer, Congestive Heart Failure, Diabetes Mellitus Type 1, Diabetes Mellitus Type 2, Internal Pacemaker, MRSA, Seizures *Have you ever received a pneumonia vaccine?: Yes *Have you received a flu vaccine this season?: Yes Other Medical History: Reports: Hormone Therapy, Hypothyroidism Comment:: Morbid obesity Anesthesia experience/problems:: No prior complications Laterality Cases: Bilateral: Other Other Surgeries: Yes: Cardiac Catheterization, Cardiac Surgery (02/09/2019), Colonoscopy, Tubal Ligation, Other. No: Pacemaker Amputation: No Fractures: No - *Social History Last grade of school completed: High school graduate Smoking Status: Never smoker Alcohol Intake: never Alcohol Intake Frequency:: other Substance Use Type: denies use *Occupational Status:: retired, disabled Housing: house Household Members: family *Travel in the last 8 weeks: None - Psychiatric History Pschychiatric History:: Reports:: Anxiety Family Hx:: Diabetes, Cancer, Heart Attack, Hyperlipidemia, Stroke, Asthma, Hypertension
--- NOTE | 2020-06-13 08:43 | P.OP_ITS ---
Date of procedure: 06/13/20 Pre-op Diagnosis:: Postmenopausal bleeding, endometrial polyp Post-op Diagnosis:: Postmenopausal bleeding, endometrial polyp Procedure performed:: Hysteroscopy with MyoSure removal of polyp Surgeon:: Juvenal Lara MD COMPUTER FORENSIC EXAMINER:: William Asencio Anesthesia: LMA Estimated blood loss (mL): 25 Clinical Note:: She is a 64-year-old lady who complains of postmenopausal bleeding. An endometrial biopsy my office showed an atrophic endometrium with a small piece of polyp. As result of that she was offered hysteroscopy with MyoSure removal of the polyp. Operative findings:: She had an approximately 1 cm bilobed polyp arising from the posterior aspect of the endometrial cavity. The rest the endometrium. Atrophic. Operative note:: She was taken the operating room where LMA anesthesia was found be adequate. She was prepped and draped in normal sterile fashion in the lithotomy position. Weighted speculum is placed in the vagina and the anterior lip of the cervix was grasped with a tenaculum. Lyn dilators were used to dilate the cervix to approximately 6 mm. The MyoSure device was then inserted into the endometrial cavity and the findings were as previously dictated. We then use the MyoSure to shave the polyp from the endometrial wall. It was completely removed. We then sampled the endometrial cavity as well with the MyoSure device. I then injected approximately 30 cc of 0.25% ropivacaine at the 3:00, 6:00, 9:00 positions of the cervix. She tolerated procedure well and was taken to the recovery room in excellent condition. All sponge, instrument counts were correct. The estimated blood loss was less than 25 cc. Condition: stable Disposition: PACU Specimens:: Endometrial polyp, endometrial sampling Complications:: None
--- NOTE | 2020-06-13 08:47 | HMH.ANESI ---
[facility] Anesthesia Record Part I Intake, IV Amount: 800 Estimated blood loss (mL): 25 Urine output (mL): 50 Blood Pressure: 131/75 SaO2: 93 Pulse Rate: 65 Respiratory Rate: 16 Temperature: 97.8 F Patient is:: Drowsy, Stable Stable to PACU at:: 08:45
--- NOTE | 2020-06-13 09:08 | PC.NURSE ---
0908-pt eating ice chips w/out difficulty at this time
--- NOTE | 2020-06-13 09:17 | PC.NURSE ---
0913-detailed report called to BrinaRN 0915-pt transported to post op via stretcher w/simran rails up, left in care of GAYLA Martinez with bed locked in lowest position, detailed report given at bedside, vss, pt stable
--- NOTE | 2020-06-13 09:35 | P.PN_ITS ---
[facility] Anesthesia Record Part II Discharge Time: 09:15 Destination: Surgical Day Care (OP Surgery) PACU nurse assessment reviewed?: Yes Patient Condition:: Good Anesthesia Complications:: None Swallowing reflex intact?: Yes Cyanosis?: No Blood Pressure: 116/59 Pulse Rate: 60 Temperature: 97.8 F Mental Status: Alert & Oriented Pain level:: 0 Nausea and/or vomitting:: None Intake, IV Amount: 0
== END 2020-06-13 09:45 | disposition home or self-care (01) ==
LOC: OR 06:55
PROVIDERS: PCP Family Medicine; Visit Provider Nurse Practitioner Obstetrics & Gynecology
PROC: (CPT 58563; principal; 2020-06-13 08:30)
DX: N95.0 Postmenopausal bleeding (principal); N84.0 Polyp of corpus uteri; I10 Essential (primary) hypertension; E78.5 Hyperlipidemia, unspecified; I48.91 Unspecified atrial fibrillation; I73.9 Peripheral vascular disease, unspecified; K21.9 Gastro-esophageal reflux disease without esophagitis; E03.9 Hypothyroidism, unspecified; Z79.82 Long term (current) use of aspirin; Z79.890 Hormone replacement therapy; Z79.899 Other long term (current) drug therapy; Z88.6 Allergy status to analgesic agent
CPT/HCPCS: 58563; 88305; 96374; J2405

== ENCOUNTER 2020-07-22 14:30 | Outpatient (RCR) | payer MEDICARE, MEDICAID, SELFPAY ==
--- NOTE | 2020-05-25 15:03 | HMH.PTOPEV ---
PT Outpatient Evaluation Rehab PT Outpatient Evaluation Start: 05/25/20 14:11 Freq: Status: Active Protocol: Document 05/25/20 14:11 JUANITA (Rec: 05/25/20 15:03 JUANITA [id number]) Electronically Signed By Emanuel Desai, PT 05/25/20 14:11 Outpatient Therapy Subjective History Subjective History Pt reports 'tripping' accident on 04/16/20 d/t 'getting my feet tangled up', and resulted in L ankle injury. Pt reports chronic L ankle pain and instability since injury. Pt also reports h/o chronic L ankle pain before this event, however, has experienced swelling with this episode. Chief Complaint Pain,Stiff,Swelling,Weakness Symptom Type Ache,Sharp,Dull Symptoms Relieved By Rest/Positioning,Ice,OTC Meds, Prescription Meds Symptoms Aggravated By Standing,Physical Activity, Walking Prior Functional Limitations Housework,Standing,Walking Current Functional Limitations Housework,Standing,Walking Symptom Description Constant but Variable Level of pain today (0-10) 4 Pain scale - at its best (0-10) 4 Pain scale - at its worst (0-10) 6 Ankle/Foot Eval Gait Observation General Gait Pattern Observation Antalgic Gait,Wide Based Gait Palpation Tenderness left Ankle/Foot Palpation Findings Tenderness Ankle/Foot Palpation Overall Comment 3/4 ATF, CF, SINUS TARSI ATF TTP positive PTF TTP positive CF TTP positive ROM Ankle/Foot Dorsiflexion w/Knee Extended 0 Active Range Motion (degrees) Ankle/Foot Plantar Flexion Active Range 0-30 of Motion (degrees) Ankle/Foot Eversion Active Range of 0-10 Motion (degrees) Ankle/Foot Inversion Active Range of 0-7 Motion (degrees) Ankle/Foot ROM Limitations Soft Tissue Tightness,Pain MMT Ankle Dorsiflexion Strength Grade 3+ Fair+ Ankle Plantarflexion Strength Grade 4- Good- Foot Eversion Strength Grade 3+ Fair+ Foot Inversion Strength Grade 3+ Fair+ Special Tests Ankle Anterior Drawer Test Positive Left Talar Tilt Test Positive Left Outpatient Therapy Assessment Impairments Problems/Impairmments Palpation Tenderness,Impaired Range of Motion,Impaired Strength,Impaired Gait Pattern ,Impaired Walking,Impaired Standing,Impaired Household Care,Subjective C/O Pain,
--- NOTE | 2020-06-28 15:02 | HMH.RHREAS ---
Rehab Reassessment Rehab OP Re-assessment Start: 06/28/20 14:43 Freq: Status: Active Protocol: Document 06/28/20 14:43 JUANITA (Rec: 06/28/20 14:53 JUANITA [id number]) Electronically Signed By Emanuel Desai, PT 06/28/20 14:43 Rehab Re-assessment Subjective Subjective PT REPORTS 2-3/10 L ANKLE PAIN ON VAS, AND FEELS 90% BETTER SINCE I EVAL OVERALL Objective Objective Notes AROM: L ANKLE DF 0, PF 0-40, INV 0-20, EVR 0-10 MMT: L ANKLE DF 4/5, PF 4+/5, INV 4/5, EVR 4/5 TTP: L ANKLE SINUS TARSI 2-3/4 , PERONEAL INSERTION 2-3/4 Assessment Progress Assessment Progressing as Expected Assessment Notes PT WITH IMPROVED AROM, STRENGTH Patient goals met STG'S 04/17 LTG'S 12/16 Goals Not Met STG'S 09/17, LTG'S 01/15 Plan Plan PT TO CONT. W/SKILLED P.T. TO MAKE FURTHER IMPROVEMENTS IN ROM, STRENGTH, TTP, AND GAIT TO ALLOW FOR OPTIMAL FUNCTION Frequency of Therapy 1-2X/WK Duration of therapy 3-4WKS Time and Billing Re-Eval Time 15 Re-Eval Billing Units 0 PHYSICIAN CERTIFICATION: I certify the specified therapy services for Morena Rodriguez are required, authorized, and reviewed every 30 days.
== END 2020-07-22 14:35 | disposition home or self-care (01) ==
LOC: PT 14:30
PROVIDERS: Visit Provider Podiatrist
DX: S93.492D Sprain of other ligament of left ankle, subsequent encounter (principal)
CPT/HCPCS: 97010; 97014; 97033; 97035; 97110; 97112; 97163; 97164; G0283

== ENCOUNTER → 2020-07-23 11:19 | Outpatient (CLI) | payer MEDICARE, SELFPAY | PROVIDERS: Visit Provider Obstetrics & Gynecology Gynecology | DX: Z01.818 Encounter for other preprocedural examination (principal) | CPT/HCPCS: U0003 ==

== ENCOUNTER → 2020-10-28 15:04 | Outpatient (CLI) | payer MEDICARE, MEDICAID, OTHER, SELFPAY ==
[2020-10-28 17:50] LABS: Coronavirus 19 IgG Antibody Negative (Negative); Coronavirus 19 IgM Antibody Negative (Negative)
== END ==
PROVIDERS: Visit Provider Internal Medicine Gastroenterology
DX: Z01.810 Encounter for preprocedural cardiovascular examination (principal); Z20.822 Contact with and (suspected) exposure to COVID-19; Z12.11 Encounter for screening for malignant neoplasm of colon; K92.1 Melena
CPT/HCPCS: 36415; 86328

== ENCOUNTER 2020-10-31 10:53 | Day surgery (SDC) | payer MEDICARE, OTHER, SELFPAY ==
[2020-10-25 10:48] VITALS: BMI 43.6
[2020-10-31 11:15] VITALS: BP 130/66; PULSE 87; RESP 22; TEMP 36.4; O2SAT 99
[2020-10-31 12:02] VITALS: O2SAT 97
--- NOTE | 2020-10-31 12:37 | P.PCN_ITS ---
[facility] Procedure Note Procedure Note:: Colonoscopy Procedure Report: Colonoscopy with cold snare polypectomy Endoscopist: Israel Keane II, MD Referring physician: Efrem Sainz M.D. Date of Procedure: October 31, 2020 Equipment: Olympus 180 variable stiffness pediatric colonoscope Sedation: MAC sedation Indication: Mrs. Rodriguez is a 65-year-old female who is here for diagnostic colonoscopy secondary to a positive Cologuard. The patient did have a colonoscopy in 2008 (Dr. Aleksandr Jackson) and had hemorrhoid surgery at that time. The patient has had some iron deficiency anemia. She did have endometrial cancer and underwent surgery/total abdominal hysterectomy in July 2020 (Dr. Aleena Mclean at the [facility]). She also was found to have iron deficiency at the time of her cardiac ablation for atrial fibrillation (Dr. Hurst at [facility]). The patient has had dark or sometimes black stools but does take iron intermittently. She reports regular bowel function but does sometimes have constipation. She will have to take a stool softener or Dulcolax. She reports no rectal bleeding, weight loss or abdominal pain. She reports no family history of colon cancer. Procedure: Prior to the procedure, a history and physical exam was performed, and patient's medications and allergies were reviewed. The risks, benefits and alternatives of the sedation and procedure were discussed with the patient. All questions were answered and informed consent was obtained. The patient was brought to the procedure room. Patient identification and proposed procedure were verified by the physician and the nurse. The patient was placed in a left lateral decubitus position and the scope was passed under direct vision. Throughout the procedure, the patient's blood pressure, pulse, and oxygen saturations were monitored continuously. The colonoscopy was accomplished without difficulty. The patient tolerated the procedure well. Findings: On digital rectal examination there was normal rectal tone. There were no external hemorrhoids. The colonoscope was introduced through the anal canal to the rectum and advanced to the cecum. The ileocecal valve and appendiceal orifice were identified. The scope was advanced a short distance into the ileum which appeared grossly normal. The scope was then withdrawn into the colon. The cecum and ascending colon were normal. There were 4 colon polyps (transverse x2 (3 and 5 mm) and ascending x2 (3 and 4 mm)) which were removed via cold snare polypectomy. There were few mildly scattered diverticuli throughout the descending and sigmoid colon (LEFT colon). The rectum itself was normal. Upon retroflexion within the rectum there were grade 1-2 internal hemorrhoids with a hypertrophied anal papilla. The preparation was fair to good throughout with [place] Preparation Score of 7 out of 9. The cecal time was 12 minutes. Impression: 1. Diminutive colonic polyps x4 2. Mild left-sided diverticulosis 3. Grade 1-2 internal hemorrhoids with hypertrophied anal papilla Plan: I will follow up the polyp histology and recommend repeat screening/surveillance colonoscopy again in 5 years. I would encourage a fiber bowel regimen on a maintenance basis (combined MiraLAX plus Metamucil). I will repeat a Hemoccult test. She has had some iron deficiency. If she were Hemoccult positive, I would consider upper endoscopy.
[2020-10-31 12:39] VITALS: BP 103/37; PULSE 64; RESP 12; TEMP 36.3; O2SAT 97
[2020-10-31 12:49] VITALS: BP 103/42; PULSE 67; RESP 16; O2SAT 98
[2020-10-31 12:59] VITALS: BP 129/58; PULSE 66; RESP 16; O2SAT 96
[2020-10-31 13:09] VITALS: BP 125/58; PULSE 66; RESP 16; TEMP 36.3; O2SAT 99
--- NOTE | 2020-10-31 15:41 | HMH.ANESCL ---
[facility] Anesthesia Checklist - Structural Data Admitted From: Home Planned Operative Procedure/s: colonoscopy Consent for Planned Operative Procedure(s) Verified: Yes Verified Documents: Surgical Consent - Additional verifications Anesthesia Reactions: No Hx Blood Transfusions: No - Airway Assessment C-Spine Mobility Assessed: Yes TMJ Mobility Assessed: Yes - Anesthesia Plan Anesthesia Risk discussed: Yes Anesthesia Plan: Verified ASA Class: III Anesthesia Type: General [facility] History Medical History: Reports:: Anxiety, Atrial Fibrillation, Cancer (endometrial carcinoma stage 1), Deep Vein Thrombosis, Gastroesophageal Reflux Disease(GERD), Hyperlipidemia, Hypertension Denies:: Atherosclerotic Heart Disease, Congestive Heart Failure, Diabetes Mellitus Type 1, Diabetes Mellitus Type 2, Internal Pacemaker, MRSA, Seizures *Have you ever received a pneumonia vaccine?: Yes *Have you received a flu vaccine this season?: Yes Other Medical History: Reports: Hormone Therapy, Hypothyroidism Anesthesia experience/problems:: none Laterality Cases: Right: Breast Biopsy, Bilateral: Other Other Surgeries: Yes: Cancer Surgery, Cardiac Catheterization, Cardiac Surgery (02/09/2019), Colonoscopy, Dilation and Curettage, Hysterectomy-Total (r/t endometrial carcinoma), Tubal Ligation, Other. No: Pacemaker Amputation: No Fractures: No - *Social History Last grade of school completed: GED Smoking Status: Never smoker Alcohol Intake: never Alcohol Intake Frequency:: other Substance Use Type: denies use *Occupational Status:: retired, disabled Housing: house Household Members: family *Travel in the last 8 weeks: None - Psychiatric History Pschychiatric History:: Reports:: Anxiety Family Hx:: Diabetes, Cancer, Heart Attack, Hyperlipidemia, Stroke, Asthma, Hypertension
== END 2020-10-31 13:42 | disposition home or self-care (01) ==
LOC: OUTP 10:56
PROVIDERS: PCP Family Medicine; Visit Provider Internal Medicine Gastroenterology
PROC: 0DJD8ZZ Inspection of Lower Intestinal Tract, Via Natural or Artificial Opening Endoscopic (ICD-10-PCS; CPT 45378; principal; 2020-10-31 12:00)
DX: K64.0 First degree hemorrhoids (principal); D50.9 Iron deficiency anemia, unspecified; K63.5 Polyp of colon; K57.30 Diverticulosis of large intestine without perforation or abscess without bleeding; D12.9 Benign neoplasm of anus and anal canal; I48.91 Unspecified atrial fibrillation; F41.9 Anxiety disorder, unspecified; Z85.42 Personal history of malignant neoplasm of other parts of uterus; Z86.718 Personal history of other venous thrombosis and embolism; E78.5 Hyperlipidemia, unspecified; I10 Essential (primary) hypertension; Z79.899 Other long term (current) drug therapy
CPT/HCPCS: 45385; 88305; J2704

== ENCOUNTER → 2020-11-01 14:30 | Outpatient (CLI) | payer MEDICARE, OTHER, SELFPAY ==
[2020-11-07 16:20] LABS: Occult Blood,Stool Positive (Negative)
== END ==
PROVIDERS: Visit Provider Internal Medicine Gastroenterology
DX: D50.0 Iron deficiency anemia secondary to blood loss (chronic) (principal)
CPT/HCPCS: 82272; G0328

== ENCOUNTER → 2020-11-03 14:39 | Outpatient (CLI) | payer MEDICARE, OTHER, SELFPAY ==
[2020-11-07 16:20] LABS: Occult Blood,Stool Positive (Negative)
== END ==
PROVIDERS: Visit Provider Internal Medicine Gastroenterology
DX: D50.0 Iron deficiency anemia secondary to blood loss (chronic) (principal)
CPT/HCPCS: 82272; G0328

== ENCOUNTER → 2020-11-06 14:44 | Outpatient (CLI) | payer MEDICARE, OTHER, SELFPAY ==
[2020-11-07 16:20] LABS: Occult Blood,Stool Positive (Negative)
== END ==
PROVIDERS: Visit Provider Internal Medicine Gastroenterology
DX: D50.0 Iron deficiency anemia secondary to blood loss (chronic) (principal)
CPT/HCPCS: 82272; G0328

== ENCOUNTER → 2020-11-07 13:49 | Outpatient (CLI) | payer MEDICARE, OTHER, SELFPAY | PROVIDERS: Visit Provider Internal Medicine Gastroenterology | DX: D50.0 Iron deficiency anemia secondary to blood loss (chronic) (principal) ==

== ENCOUNTER → 2020-12-17 10:51 | Outpatient (CLI) | payer MEDICARE, OTHER, SELFPAY ==
[2020-12-17 12:41] LABS: Coronavirus 19 IgG Antibody Negative (Negative); Coronavirus 19 IgM Antibody Negative (Negative)
== END ==
PROVIDERS: Visit Provider Internal Medicine Gastroenterology
DX: Z01.812 Encounter for preprocedural laboratory examination (principal); Z20.822 Contact with and (suspected) exposure to COVID-19; Z13.810 Encounter for screening for upper gastrointestinal disorder
CPT/HCPCS: 36415; 86328

== ENCOUNTER 2020-12-19 08:20 | Day surgery (SDC) | payer MEDICARE, SELFPAY ==
[2020-12-14 13:01] VITALS: BMI 42.5
[2020-12-19] VITALS (7 sets, daily range): BP systolic 110–128; BP diastolic 61–78; PULSE 62–71; RESP 16–18; TEMP 36.3–36.4; O2SAT 94–99
--- NOTE | 2020-12-19 08:57 | HMH.ANESCL ---
[facility] Anesthesia Checklist - Patient Identification Patient Identification: Arm Band - Structural Data Admitted From: Home Planned Operative Procedure/s: EGD Consent for Planned Operative Procedure(s) Verified: Yes Verified Documents: Surgical Consent, History and Physical - NPO Status Verified Time NPO: 00:00 - Additional verifications Anesthesia Reactions: No Hx Blood Transfusions: No - Airway Assessment C-Spine Mobility Assessed: Yes (mp2) TMJ Mobility Assessed: Yes Dentition: Good Dentition - Neurological Assessment Level of Consciousness: Awake, Alert - Anesthesia Plan Anesthesia Risk discussed: Yes Anesthesia Plan: Verified ASA Class: III Anesthesia Type: MAC [facility] History I have reviewed the patient's past medical history: Yes Medical History: Reports:: Anxiety, Atrial Fibrillation, Cancer (edometrial), Deep Vein Thrombosis, Gastroesophageal Reflux Disease(GERD), Hyperlipidemia, Hypertension Denies:: Atherosclerotic Heart Disease, Congestive Heart Failure, Diabetes Mellitus Type 1, Diabetes Mellitus Type 2, Internal Pacemaker, MRSA, Seizures *Have you ever received a pneumonia vaccine?: Yes *Have you received a flu vaccine this season?: Yes Other Medical History: Reports: Hormone Therapy, Hypothyroidism Anesthesia experience/problems:: nac Laterality Cases: Right: Breast Biopsy, Bilateral: Other Other Surgeries: Yes: Cancer Surgery, Cardiac Catheterization, Cardiac Surgery (02/09/2019), Colonoscopy, Dilation and Curettage, Hysterectomy-Total (r/t endometrial carcinoma), Tubal Ligation, Other. No: Pacemaker Amputation: No Fractures: No - *Social History Last grade of school completed: GED Smoking Status: Never smoker Alcohol Intake: never Alcohol Intake Frequency:: other Substance Use Type: denies use *Occupational Status:: retired Housing: house Household Members: family *Travel in the last 8 weeks: None - Psychiatric History Pschychiatric History:: Reports:: Anxiety Family Hx:: Cancer, Diabetes, Heart Attack, Hypertension, Stroke
--- NOTE | 2020-12-19 09:49 | HMH.PROC ---
[facility] Procedure Note Procedure Note:: Upper Endoscopy Procedure Report: Esophagogastroduodenoscopy with cold biopsies and TTS balloon dilation Endoscopost: Israel Keane II, MD Referring Physician: Eferm Sainz M.D. Date of Procedure: December 19, 2020 Equipment: Olympus GIF 190 standard upper endoscope Sedation: MAC sedation Indications: Mrs. Rodriguez is a 65-year-old female with iron deficiency anemia and positive Hemoccult. She is taking iron supplementation orally but has not required blood transfusion or parenteral iron. She has been on Xarelto. She reports no bright red rectal bleeding, hematochezia or melena. She has had darker stools but has been on the iron supplement. She reports no abdominal pain. She does have chronic GERD and takes omeprazole which controls her reflux. She does have intermittent dysphagia. She did have a colonoscopy with me on October 31, 2020 and there were 4 diminutive colon polyps. Procedure: Prior to the procedure, a history and physical exam was performed, and patient's medications and allergies were reviewed. The risks, benefits and alternatives of the sedation and procedure were discussed with the patient. All questions were answered and informed consent was obtained. The patient was brought to the procedure room. Patient identification and proposed procedure were verified by the physician and the nurse. The patient was placed in a left lateral decubitus position and the scope was passed under direct vision. Throughout the procedure, the patient's blood pressure, pulse, and oxygen saturations were monitored continuously. The upper GI endoscopy was accomplished without difficulty. The patient tolerated the procedure well. Findings: The scope was passed directly into the upper esophagus and advanced to the third portion of the duodenum. The post bulbar duodenum and duodenal bulb were normal with normal mucosa and conniventes. The scope was withdrawn through a normal duodenal bulb and pylorus into the stomach. There was evidence of mild linear reactive gastropathy of the antrum. Upon retroflexion there was a large hiatal/paraesophageal hernia with Milton's erosions and minor heme. Cold biopsies were taken from the antrum and lesser curvature. The scope was then withdrawn into the esophagus. The diaphragmatic hiatus was at 42 cm and the GE junction and squamocolumnar junction/Z-line were at 35 cm leaving a 7 cm hiatal hernia/paraesophageal hernia. There was a serrated Z-line. There was no evidence of reflux esophagitis. Biopsies were taken from the GE junction. There were very strong tertiary contractions and evidence of moderate esophageal dysmotility/presbyesophagus. The entire esophagus was dilated to 60 [place]/20 mm with a TTS hydrostatic balloon. There was some mild resistance at the cricopharyngeus. The remainder of the esophageal mucosa was normal. Impression: 1. Large 7 cm hiatal/paraesophageal hernia with Milton's erosions 2. Moderate esophageal dysmotility/presbyesophagus 3. Mild linear reactive gastropathy of antrum Plan: I do feel that the patient's iron deficiency is secondary to the Milton's erosions and larger hiatal hernia. I will discuss this with the patient and family. I will follow-up the biopsies.
== END 2020-12-19 10:40 | disposition home or self-care (01) ==
LOC: OUTP 08:22
PROVIDERS: PCP Family Medicine; Visit Provider Internal Medicine Gastroenterology
PROC: 0DJ08ZZ Inspection of Upper Intestinal Tract, Via Natural or Artificial Opening Endoscopic (ICD-10-PCS; CPT 43235; principal; 2020-12-19 09:30)
DX: K92.1 Melena (principal); R13.10 Dysphagia, unspecified; K44.9 Diaphragmatic hernia without obstruction or gangrene; K22.10 Ulcer of esophagus without bleeding; K22.4 Dyskinesia of esophagus; K31.9 Disease of stomach and duodenum, unspecified; F41.9 Anxiety disorder, unspecified; I48.91 Unspecified atrial fibrillation; K21.9 Gastro-esophageal reflux disease without esophagitis; I10 Essential (primary) hypertension; E78.5 Hyperlipidemia, unspecified; Z86.718 Personal history of other venous thrombosis and embolism; Z85.89 Personal history of malignant neoplasm of other organs and systems
CPT/HCPCS: 43239; 43249; 88305; 88342; C1726

== ENCOUNTER → 2021-06-19 13:25 | Outpatient (CLI) | payer MEDICARE, SELFPAY ==
--- NOTE | 2021-06-19 13:40 | US_ITS ---
PROCEDURE: US THYROID CLINICAL INDICATION: thyroiditis COMPARISON: US US THYROID from 05/18/2020 FINDINGS: Right lobe: 4.7 x 1.9 x 2.1 cm with heterogeneous echogenicity. No discrete nodule apparent Left lobe: 4.3 x 1.4 x 1.9 cm with heterogeneous echogenicity. There is a 1.1 x 0.5 cm spongiform appearing nodule in the lower pole TR level 2 benign-appearing. Not significantly changed Isthmus: There is a small nodule within the isthmus centrally at 3 x 2 mm. This is hypoechoic wider than tall well-defined and may be due to small complicated cyst with enhanced through transmission of sound. Additional findings: IMPRESSION: Bilateral diffuse heterogeneous echogenicity of the thyroid gland which is upper limits of normal in size she is possibly due to thyroiditis. Benign-appearing nodules in the lower pole on the right and in the isthmus. Since the isthmus nodule is new, would recommend a 12 month follow-up to confirm stability Dictated by: Juanito Rollins MD 06/20/2021 07:59 Juanito Rollins MD in OV 06/20/2021 07:59
[2021-06-19 23:51] LABS: T4 (Thyroxine) 9.9 ug/dl (5.53-11.0)
[2021-06-20 00:05] LABS: Thyroid Stimulating Hormone 1.27 uIU/mL (0.465-4.68)
[2021-06-21 09:26] LABS: Thyroid Peroxidase Antibodies <8 IU/mL (0-34)
[2021-06-22 09:08] LABS: Thyroid Stimulating Immunoglob <0.10 IU/L (0.00-0.55)
== END ==
PROVIDERS: PCP Family Medicine; Visit Provider Otolaryngology
DX: E04.1 Nontoxic single thyroid nodule (principal); E06.3 Autoimmune thyroiditis
CPT/HCPCS: 36415; 76536; 84436; 84443; 84445; 86376

== ENCOUNTER → 2021-12-11 09:12 | Outpatient (CLI) | payer MEDICARE, SELFPAY ==
--- NOTE | 2021-12-11 09:17 | XR_ITS ---
FINAL REPORT TECHNIQUE: Bone mineral density was calculated of the lumbar spine and hip. CLINICAL HISTORY: . post menopausal FINDINGS: Using L1-4, the bone mineral density of the spine is 1.135 g/cm2, corresponding to T-score of 0.8. Using the left hip, the bone mineral density of the femoral neck is 0.680 g/cm2, corresponding to a T-score of -1.5. NOTE: T-score: Standard deviation compared with peak bone mass of young adult mean. *Following the recommendations of the International Society of Bone densitometry, classification of hip BMD is based on the lower of two T-scores; total hip or femoral neck. IMPRESSION: Diminished bone mineral density of the left hip consistent with osteopenia. FRAX 10 year fracture risk is 8.3% for major osteoporotic fracture. Reviewed, Interpreted and Dictated by Liang Mejia III, MD Transcribed by Jina Ambrosio Authenticated by Liang Mejia III, MD on 12/11/2021 11:45:54 AM [facility]
== END ==
PROVIDERS: PCP Family Medicine; Visit Provider Obstetrics & Gynecology Gynecologic Oncology
DX: Z78.0 Asymptomatic menopausal state (principal); C54.1 Malignant neoplasm of endometrium
CPT/HCPCS: 77080

== ENCOUNTER → 2022-07-02 14:17 | Outpatient (CLI) | payer MEDICARE, SELFPAY ==
[2022-07-02 16:13] LABS: Ferritin 74.3 ng/ml (11.1-264)
[2022-07-02 16:23] LABS: Free T4 (Free Thyroxine) 1.15 ng/dl (0.78-2.19)
[2022-07-02 16:39] LABS: Thyroid Stimulating Hormone 0.73 uIU/mL (0.465-4.68)
== END ==
PROVIDERS: Nurse Practitioner Family; PCP Family Medicine; Visit Provider Otolaryngology
DX: E83.10 Disorder of iron metabolism, unspecified (principal); E03.9 Hypothyroidism, unspecified
CPT/HCPCS: 36415; 82728; 84439; 84443

== ENCOUNTER → 2023-02-15 07:09 | Outpatient (CLI) | payer MEDICARE, SELFPAY ==
--- NOTE | 2023-02-15 | CA_ITS ---
APPROVED REPORT Exam: Pharmacologic Technologist: Alessandra Ugalde, Ht: 5 ft 8 in Wt: 262 lbs BSA: 2.29 m2 HR: 58 bpm BP: 117/46 mmHg Rhythm: NSR Medical History Medical History: HTN, Hyperlipidemia Medications: Levothyroxine,,,,, Aspirin,,,,, Simvastatin,,,,, Trazadone,,,,, Sotalol,,,,, Tramadol,,,,, Vit D3,,,,, Multivitamin,,,,, SpirOnALACTONE,,,,, RIvaROXABAN,,,,, Alendronate,,,,, Furosemide,,,,, Cardiac Risk Factors: HTN, Hyperlipidemia Stress Test Details Test: LEXISCAN HR Resting HR: 62 bpm Max Heart Rate (APMHR): 151 bpm Max HR Achieved: 75 bpm Target HR (85% APMHR): 128 bpm % of APMHR: 50 Recovery HR: 70 bpm BP Resting BP: 117/46 mmHg Max BP: 117/46 mmHg Recovery BP: 112.0/48.0 mmHg ECG Resting ECG: sinus norah, 1 AVB, low voltage QRS Stress ECG: No change Arrhythmia: None Recovery ECG: No change Recovery Arrhythmia: None Clinical Exercise duration: 04:01 min Highest Stage Achieved: Exercise capacity: n/a METs Stress ECG Conclusion During lexiscan pt experinced mild SOA, nausea, head discomfort. No CP noted. No arrhythmias noted. No significant ST changes. Unremarkable lexiscan stress. Myoview images reported separately. Test Summary REST 05:47 . . 62 . 117/ 46 . . Stage 1 01:00 . . 70 . . . . Stage 2 01:00 . . 72 . . . . Stage 3 01:00 . . 72 . 105/ 45 . . Stage 4 01:00 . . 71 . 100/ 44 . . Stage 4 01:01 . . 71 . 100/ 44 . Stop exercise at 04:01 RECOVERY 01:00 . . 73 . 106/ 44 . . RECOVERY 02:00 . . 70 . 106/ 44 . . RECOVERY 03:00 . . 69 . 112/ 48 . . RECOVERY 03:46 . . 67 . 105/ 46 . . Electronically signed by : Colette Timmons, 02/18/2023 00:58:17
--- NOTE | 2023-02-15 07:09 | NM_ITS ---
APPROVED REPORT Exam: Nuclear Stress Test Indication: CAD, A-FIB, HYPERLIPIDEMIA, FM HX, SOB Patient Location: Outpatient Stress Tech: Alessandra Ugalde MD Tech:Elizabeth Ko NAYLARika RT (R)(N)(M) Ht: 5 ft 8 in Wt: 260 lbs Bra Size: C HR: 62 bpm BP: 117/46 mmHg BSA: 2.28 m2 TID: 1.16 BMI: 39.5 History: CAD, A-FIB, HYPERLIPIDEMIA, FM HX, SOB PT COULD NOT LAY ON ABDOMEN FOR PRONE IMAGES Procedure: Patient received 0.4 mg of intravenous Lexiscan, resting heart rate 62 bpm, resting blood pressure 117/46 mmHg, with Lexiscan maximum heart rate achieved was 75 bpm which is % of the maximum predicted heart rate and blood pressure was 117/46 mmHg. With Lexiscan, patient denied any complaint of chest pain. Cardiac Stress and Resting SPECT Images: Cardiac Stress and Resting SPECT images were obtained using technetium 99m Myoview 30.3 mCi stress and 10.23 mCi at rest. Patient could not lay on his abdomen for prone imaging. Therefore, this is a limited SPECT imaging study. The diagnostic capacity of the study may be affected. Resting and stress imaging in supine position demonstrate a large sized, moderate, fixed perfusion defect in the anterior LV wall from the base and extending distally. Gated imaging demonstrates normal global and regional LV systolic function. LVEF is calculated at 61%. Conclusion: Patient could not lay on his abdomen for prone imaging. Therefore, this is a limited SPECT imaging study. The diagnostic capacity of the study may be affected. Resting and stress imaging in supine position demonstrate a large sized, moderate, fixed perfusion defect in the anterior LV wall from the base and extending distally. Findings may be suggestive of diaphragmatic attenuation in the setting of normal corresponding wall motion, however true perfusion defects cannot be entirely ruled out. Gated imaging demonstrates normal global and regional LV systolic function. LVEF is calculated at 61%. Electronically signed by : Colette Timmons, 02/18/2023 01:04:38
== END ==
PROVIDERS: PCP Family Medicine; Visit Provider Nurse Practitioner
DX: R06.09 Other forms of dyspnea (principal); R60.0 Localized edema; I25.118 Atherosclerotic heart disease of native coronary artery with other forms of angina pectoris
CPT/HCPCS: 78452; 93017; 93306; A9502; J2785

== ENCOUNTER 2023-03-27 07:45 | Day surgery (SDC) | payer MEDICARE, SELFPAY ==
[2023-03-27] VITALS (18 sets, daily range): BP systolic 98–148; BP diastolic 51–80; PULSE 51–73; RESP 17–18; O2SAT 94–100; BMI 39.0
--- NOTE | 2023-03-27 | IR_ITS ---
APPROVED REPORT Patient Location: Outpatient Electrical Engineering Teacher: PRINCESS Arellano RT (R) PROCEDURES Left heart catheterization Left ventriculogram Selective coronary angiogram INDICATION Progressive angina pectoris Informed consent was obtained prior to the procedure. COMPLICATIONS None Estimated Blood Loss: Less than 10 mls TECHNIQUE One percent lidocaine was used to anesthetize the right groin. The right femoral artery was accessed via the Seldinger technique. A 4-Faroese sheath was placed in the right femoral artery. The JL-4 and JR-4 catheter was also used to perform left heart catheterization left ventriculogram and selective coronary angiogram. At the end of the procedure the patient was transferred to the post-op holding area in stable condition for arterial sheath removal. ANGIOGRAPHIC RESULTS The left main artery Normal The left anterior descending artery Has proximal 10 to 20% luminal irregularities The circumflex artery Nondominant yet still large with diffuse 10% luminal irregularities The right coronary artery Dominant with diffuse 10% luminal irregularities The MENESES ventriculogram reveals Normal 65% The left ventricular end-diastolic pressure 10 mmHg IMPRESSION Nonflow limiting mild coronary artery disease Normal ejection fraction Normal left ventricular end-diastolic pressure PLAN 1. Evaluation of noncardiac symptoms 2. Standard risk factor modification Electronically signed by : Guicho Childs MD 03/27/2023 10:08:53
[2023-03-27 08:26] LABS: Basophils # 0.1 K/mm3 (0-0.2); Basophils % 0.7 % (0.1-2.0); Eosinophils # 0.7 K/mm3 (0.0-0.4); Eosinophils % 7.1 % (0.1-12.0); Hematocrit 40.9 % (37.0-47.0); Hemoglobin 12.7 g/dL (12.2-16.2); Lymphocytes # 2.1 K/mm3 (0.7-4.5); Lymphocytes % 21.4 % (10-50); Mean Corpuscular Hemoglobin 29.9 pg (27.0-31.2); Mean Corpuscular Volume 96.6 fl (81-99); Mean Platelet Volume 8.1 fl (7.4-10.4); Monocytes # 0.6 K/mm3 (0.1-1.0); Monocytes % 6.2 % (1.7-9.3); Neutrophils # 6.3 K/mm3 (1.8-7.8); Neutrophils % 64.5 % (37.0-80.0); Platelet Count 324 K/mm3 (142-424); Red Blood Count 4.23 M/mm3 (4.20-5.40); Red Cell Distribution Width 13.9 % (11.5-17.5); White Blood Count 9.8 K/mm3 (4.8-10.8)
[2023-03-27 08:32] LABS: Anion Gap 8.8 mEq/L (5-15); Blood Urea Nitrogen 17 mg/dl (7-17); Calcium 9.3 mg/dl (8.4-10.2); Carbon Dioxide 31 mmol/L (22.0-30.0); Chloride 105 mmol/L (98-107); Creatinine Clearance Estimated 98 mL/min (50-200); Estimated Glomerular Filt Rate 62 ml/min (>60); GFR (African American) 75 ML/MIN (>60); Glucose 96 mg/dl (74-100); Potassium 3.8 mmoL/L (3.5-5.1); Sodium 141 mmol/L (136-145)
== END 2023-03-27 13:35 | disposition home or self-care (01) ==
PROVIDERS: PCP Family Medicine; Visit Provider Internal Medicine
DX: I25.118 Atherosclerotic heart disease of native coronary artery with other forms of angina pectoris (principal); Z79.899 Other long term (current) drug therapy; Z79.01 Long term (current) use of anticoagulants; E03.9 Hypothyroidism, unspecified; I10 Essential (primary) hypertension; I48.20 Chronic atrial fibrillation, unspecified; E78.5 Hyperlipidemia, unspecified
CPT/HCPCS: 80048; 85025; 93458; 99152; C1725; C1769; J1644; Q9967

== ENCOUNTER → 2023-06-25 13:52 | Outpatient (CLI) | payer MEDICARE, SELFPAY ==
--- NOTE | 2023-06-25 13:52 | US_ITS ---
FINAL REPORT CLINICAL HISTORY: hx nodules FINDINGS: THYROID ULTRASOUND The right lobe of the thyroid measures 4.9 x 2.1 x 1.7 cm. The left lobe of the thyroid measures 3.3 x 1.6 x 1.2 cm. The gland is heterogeneous. In the right lobe of the thyroid is a 4 x 2 x 4 mm cystic TI-RADS 1 nodule. There is a 2 x 2 mm cystic isthmus nodule consistent with a TI-RADS 1. In the left lobe of the thyroid is a 10 x 7 x 4 mm cystic solid and hypoechoic TI-RADS 3 nodule. IMPRESSION: Small bilateral nodules. No follow-up required based on size criteria. Reviewed, Interpreted and Dictated by Liang Mejia III, MD Transcribed by Jozef Salcedo Authenticated and [facility]
== END ==
PROVIDERS: PCP Family Medicine; Visit Provider Otolaryngology
DX: E03.9 Hypothyroidism, unspecified (principal)
CPT/HCPCS: 76536

== ENCOUNTER 2023-11-30 16:29 | Emergency (ER) | payer MEDICARE, SELFPAY ==
--- NOTE | 2023-11-30 16:35 | XR_ITS ---
PROCEDURE INFORMATION: Exam: XR Left Ribs with PA Chest Exam date and time: 11/30/2023 4:32 PM Age: 68 years old Clinical indication: Injury or trauma; Fall; Rib area, left side; Blunt trauma TECHNIQUE: Imaging protocol: Radiologic exam of the left ribs with PA chest. Views: 3 views COMPARISON: [facility] CT angio chest 03/25/2018 2:56 PM FINDINGS: Lungs: Normal. Pleural spaces: Normal. No pleural effusion. No pneumothorax. Heart/Mediastinum: Normal. No cardiomegaly. Vasculature: Mild atherosclerotic plaque in the aortic arch. Bones/joints: Unremarkable. IMPRESSION: No acute findings.
[2023-11-30 16:50] VITALS: BP 140/82; PULSE 61; RESP 18; TEMP 36.8; O2SAT 100; BMI 37.4
--- NOTE | 2023-11-30 17:22 | ED_ITS ---
Discharge Plan Disposition Patient Disposition: Home, Self-Care Condition: Good Prescriptions Prescriptions: New tizanidine [Zanaflex] 4 mg tablet 4 mg PO Q8H PRN (Reason: muscle spasticity) Qty: 30 0RF No Action sotalol 80 mg tablet 80 mg PO BID ferrous sulfate 140 mg (45 mg iron) tablet extended release 140 mg PO DAILY levothyroxine 75 mcg tablet 75 mcg PO DAILY 90 Days Qty: 90 3RF alendronate 10 mg tablet 10 mg PO WEEKLY simvastatin 40 mg tablet 40 mg PO HS aspirin [Adult Low Dose Aspirin] 81 mg tablet,delayed release (DR/EC) 81 mg PO DAILY potassium chloride 20 mEq tablet,ER particles/crystals 20 meq PO DAILY 30 Days Qty: 30 multivitamin tablet 1 tab PO DAILY cholecalciferol (vitamin D3) 125 mcg (5,000 unit) capsule 5,000 unit PO .qotherd trazodone 50 mg tablet 50 mg PO QHS 90 Days Qty: 90 3RF Rx Instructions: Take one tablet by mouth at bedtime for Insomnia, RLS furosemide 20 mg tablet 20 mg PO DAILY Qty: 30 5RF spironolactone 25 mg tablet See Rx Instructions .ROUTE .COMPLEX Qty: 90 1RF Dose Instruction: TAKE ONE TABLET BY MOUTH EVERY DAY Rx Instructions: TAKE ONE TABLET BY MOUTH EVERY DAY Xarelto 20 mg tablet See Rx Instructions .ROUTE .COMPLEX Qty: 30 5RF Dose Instruction: TAKE ONE TABLET BY MOUTH EVERY DAY Rx Instructions: TAKE ONE TABLET BY MOUTH EVERY DAY tramadol 50 MG tablet 50 mg PO Q6HP PRN (Reason: PAIN) Referrals Follow up/Referrals: Jeaneth Sainz MD [Primary Care Provider] - See instructions Clinical Impressions Clinical Impression: Back pain due to injury Instructions Patient Instructions: DI for Low Back Pain Discharge ED Provider: Lety Escobedo [facility] HPI General Stated complaint: AO03/23@0830 fall , rib pain Mode of Arrival: Ambulatory Source of Information: Patient Limitations: No Limitations Time Seen by Provider: 11/30/23 17:01 Description of Symptoms (Recalled from Triage Doc. by RN): Pt fell in the shower today and has pain from left back pain and radiates to the front ribs. HEENT Symptoms (Recalled from RN notes): No Resp Symptoms (Recalled from RN notes): No Skin Symptoms (Recalled from RN notes): No MS Symptoms (Recalled from RN notes): Yes Functional Status (Recalled from RN notes): n/a History of Present Illness Provider Complaint: Pt reports that while taking a shower her feet flew out from underneath her and she fell hitting her mid back and left ribs. She reports that she worries she may have broken her ribs. She states that she hit the center back and it is bruised. She states that she has taken her tramadol as n eeded. She reports that she is having muscle spasms. Related Data Home Medications Medication Instructions Recorded Confirmed simvastatin 40 mg tablet 40 mg PO HS Cholesterol 01/03/18 11/30/23 tramadol 50 mg tablet 50 mg PO Q6HP PRN PAIN 03/25/18 11/30/23 multivitamin 1 tab PO DAILY Supplement 04/24/18 11/30/23 aspirin 81 mg tablet,delayed 81 mg PO DAILY HEART HEALTH 08/18/18 11/30/23 release (Adult Low Dose Aspirin) ferrous sulfate 140 mg (45 mg 140 mg PO DAILY Supplement 03/19/19 11/30/23 iron) tablet,extended release sotalol 80 mg tablet 80 mg PO BID afib 03/19/19 11/30/23 potassium chloride 20 mEq 20 meq PO DAILY Supplement 30 days 11/11/20 11/30/23 tablet,extended release(part/cryst) #30 tabs alendronate 10 mg tablet 10 mg PO WEEKLY . 06/15/22 11/30/23 cholecalciferol (vitamin D3) 125 5,000 unit PO .qotherd Supplement 02/07/23 11/30/23 mcg (5,000 unit) capsule Previous Rx's Medication Instructions Recorded levothyroxine 75 mcg tablet 75 mcg PO DAILY HYPOTHYROIDISM 90 06/26/21 days #90 tabs trazodone 50 mg tablet 50 mg PO QHS Insomnia, rls 90 days 06/26/23 #90 tabs furosemide 20 mg tablet 20 mg PO DAILY Fluid #30 tabs 07/09/23 spironolactone 25 mg tablet See Rx Instructions .Route 08/19/23 .COMPLEX #90 tabs rivaroxaban 20 mg tablet (Xarelto) See Rx Instructions .Route 10/16/23 .COMPLEX #30 tabs tizanidine 4 mg tablet (Zanaflex) 4 mg PO Q8H PRN muscle spasticity 03/23/24 #30 tabs Allergies Allergy/AdvReac Type Severity Reaction Status Date / Time ibuprofen [From ADVIL] Allergy Unknown I-HIVES Verified 11/30/23 17:07 mefenamic acid [From PONSTEL] Allergy Unknown I-HIVES Verified 11/30/23 17:07 Worker's Comp Is this a Worker's Comp case?: No [facility] Disclaimer: The information contained in this section may have been updated after the patient was seen, as this information can be updated by other users. Medical History Abnormal EKG CAD (coronary artery disease) Callus of foot Chest heaviness H/O deep venous thrombosis HLD (hyperlipidemia) HTN (hypertension) Surgical History History of atrioventricular mario ablation Social History Smoking Status: Never smoker second hand exposure: No alcohol intake: never substance use type: denies use current occupational status: retired Travel in the last 8 weeks: Inside the [place] household members: family housing: house current occupational exposures/hazards: No caffeine: No ROS Obtained: Yes All systems reviewed & no additional complaints except as documented Constitutional Constitutional: Reports system reviewed and no additional complaints, except as documented Eyes Eyes: Reports system reviewed and no additional complaints, except as documented ENT Ears, Nose, Mouth, and Throat: Reports system reviewed and no additional complaints, except as documented Cardiovascular Cardiovascular: Reports system reviewed and no additional complaints, except as documented Respiratory Respiratory: Reports system reviewed and no additional complaints, except as documented Gastrointestinal Gastrointestingal: Reports system reviewed and no additional complaints, except as documented Genitourinary Female Genitourinary: Reports system reviewed and no additional complaints, except as documented Musculoskeletal Musculoskeletal: Reports system reviewed and no additional complaints, except as documented, Reports back pain, Reports muscle cramps, Reports myalgias and Reports stiffness Integumentary/Breasts Skin/Breast: Reports system reviewed and no additional complaints, except as documented Neurologic Neurologic: Reports system reviewed and no additional complaints, except as documented Endocrine Endocrine: Reports system reviewed and no additional complaints, except as documented Hematologic/Lymphatic Henatologic/Lymphatic: Reports system reviewed and no additional complaints, except as documented and Reports easy bleeding Comments: Takes blood thinner Allergic/Immunologic Allergic/Immunologic: Reports system reviewed and no additional complaints, except as documented Physical Exam General General appearance: alert Comment: appears in pain Head Head exam: atraumatic and normocephalic Eye Eye exam: Present normal appearance ENT ENT exam: Present normal exam Neck Neck exam: Present normal inspection Chest Chest inspection: Present normal inspection and symmetric chest wall rise Respiratory Respiratory exam: Present normal lung sounds bilaterally Cardiovascular Cardiovascular exam: Present regular rate and normal rhythm Abdominal Exam Abdominal exam: Present soft Extremities Exam Extremities exam: Present normal inspection Back Exam Back exam: Present muscle spasm and vertebral tenderness Comment: baseball sized bruise noted at the L1-L2 site. Tender to touch. Neurological Exam Neurological exam: Present alert and oriented X3 Psychiatric Psychiatric exam: Present normal affect and normal mood Skin Skin exam: Present warm and dry Lymphatic Lymphatic Findings: no adenopathy Medical Decision Making Andreas Inquiry Pt receiving controlled substance: No Andreas was queried for this patient: No Vital Signs: 11/30/23 16:50 Temperature 98.3 F Temperature Source Oral Pulse Rate [Right Radial] 61 Respiratory Rate 18 Blood Pressure [Right Arm] 140/82 Blood Pressure Mean [Right Arm] 101 Blood Pressure Source [Right Arm] Automatic Cuff Blood Pressure Position [Right Arm] Sitting 02 Sat by Pulse Oximetry 100 Oxygen Delivery Method Room Air Orders (Tests/Meds): ORDERS Category Date Time Status XR ribs LT min 3V w CXR1V Stat Exams 11/30/23 16:35 Completed Radiology Data #1: Image(s): Chest and Other (ribs) Image Reviewed: Yes I have reviewed radiologist's interpretation FINDINGS: Lungs: Normal. Pleural spaces: Normal. No pleural effusion. No pneumothorax. Heart/Mediastinum: Normal. No cardiomegaly. Vasculature: Mild atherosclerotic plaque in the aortic arch. Bones/joints: Unremarkable. IMPRESSION: No acute findings.
[2023-11-30 17:28] VITALS: BP 140/82; PULSE 61; RESP 18; TEMP 36.8; O2SAT 100
--- NOTE | 2023-11-30 17:42 | PC.NURSE ---
Pt came in complaining of back rib pain that radiated to front of ribs. She came in and wanted to make sure she hadn't broken any ribs.
== END 2023-11-30 17:28 | disposition home or self-care (01) ==
PROVIDERS: Emergency Provider Nurse Practitioner Family; PCP Family Medicine
DX: S30.0XXA Contusion of lower back and pelvis, initial encounter (principal); M62.830 Muscle spasm of back; M54.9 Dorsalgia, unspecified; I11.9 Hypertensive heart disease without heart failure; I25.10 Atherosclerotic heart disease of native coronary artery without angina pectoris; E78.5 Hyperlipidemia, unspecified; W18.2XXA Fall in (into) shower or empty bathtub, initial encounter
CPT/HCPCS: 71101; 99204; 99212; G0463

== ENCOUNTER 2024-04-15 14:47 | Outpatient (CLI) | payer MEDICARE, SELFPAY ==
--- NOTE | 2024-04-15 14:49 | XR_ITS ---
FINAL REPORT TECHNIQUE: Bone densitometry calculations of the lumbar spine and left hip were obtained. CLINICAL HISTORY: SCREENING COMPARISON: 12/11/2021 FINDINGS: Using L1-4, the bone mineral density of the spine is 1.170 g/cm2, corresponding to T-score of 1.1. Using the left hip, the bone mineral density of the femoral neck is 0.757 g/cm2, corresponding to a T-score of -0.8. Using the right hip, the bone mineral density of the femoral neck is 0.764 g/cm2, corresponding to a T-score of -0.8. NOTE: T-score: Standard deviation compared with peak bone mass of young adult mean. *Following the recommendations of the International Society of Bone densitometry, classification of hip BMD is based on the lower of two T-scores; total hip or femoral neck. IMPRESSION: Normal bone mineral density of the lumbar spine and hips. FRAX was not reported because some of the T-scores are at or above-1.0. Reviewed, Interpreted and Dictated by Liang Mejia III, MD Transcribed by Cathie Christianson Authenticated and [facility]
== END 2024-04-15 23:59 | disposition home or self-care (01) ==
LOC: RAD 14:47
PROVIDERS: PCP Family Medicine; Visit Provider Family Medicine
DX: M81.0 Age-related osteoporosis without current pathological fracture (principal)
CPT/HCPCS: 77080

== ENCOUNTER 2024-06-16 10:52 | Outpatient (CLI) | payer MEDICARE, SELFPAY ==
--- NOTE | 2024-06-16 10:53 | US_ITS ---
FINAL REPORT CLINICAL HISTORY: thyroid nodule COMPARISON: 06/25/2023 FINDINGS: Sonographic images of the thyroid gland were obtained. The right thyroid lobe measures 40 mm. in length. The left thyroid lobe measures 45 mm. in length. The thyroid isthmus measures 6 mm. There is heterogeneous echotexture throughout the thyroid gland. There are multiple nodules again seen, many of which are poorly defined. The largest nodule on the right side measures 11 mm in diameter, is cystic and solid, isoechoic, visually stable when compared to the prior exam. This is a TI-RADS category 2 nodule. On the left side, there is an up to 9 mm nodule, was previously 7 mm, spongiform, a TI-RADS category 1 nodule. The overall appearance of the thyroid gland is similar to that seen on the prior exam of June 2023. IMPRESSION: Heterogeneous gland with several nodules, given differences in technique not significantly changed since the prior exam of 2022. According to TI-RADS criteria, no follow-up is required at this time. Reviewed, Interpreted and Dictated by Liang Mejia III, MD Transcribed by Patito Morris Authenticated and [facility]
== END 2024-06-16 23:59 | disposition home or self-care (01) ==
LOC: RAD 10:53
PROVIDERS: PCP Family Medicine; Visit Provider Nurse Practitioner
DX: E04.1 Nontoxic single thyroid nodule (principal)
CPT/HCPCS: 76536

== ENCOUNTER 2024-06-17 11:25 | Outpatient (CLI) | payer MEDICARE, SELFPAY ==
[2024-06-17 13:13] LABS: Thyroid Stimulating Hormone 1.21 uIU/mL (0.465-4.68)
[2024-06-17 15:03] LABS: Free T4 (Free Thyroxine) 1.31 ng/dl (0.78-2.19)
[2024-06-18 08:19] LABS: Thyroid Peroxidase Antibodies <9 IU/mL (0-34)
== END 2024-06-17 23:59 | disposition home or self-care (01) ==
LOC: LAB 11:26
PROVIDERS: PCP Family Medicine; Visit Provider Nurse Practitioner
DX: E04.1 Nontoxic single thyroid nodule (principal)
CPT/HCPCS: 36415; 84439; 84443; 86376

== ENCOUNTER 2025-06-24 12:34 | Outpatient (CLI) | payer MEDICARE, SELFPAY ==
--- OUTSIDE RECORDS SUMMARY | 2025-06-24 12:37 | XMS_ITS | Clinical Summary ---
Author Organization [facility] Address [address] [place] [address] Care Team Providers Care Fitness Technician Name Role Phone Marcio Sainz MD Primary Care Provider [phone] Allergies Active Allergy Reactions Criticality Noted Date Comments Ibuprofen Hives,Rash,Unknown (See Comments) Medium Mefenamic Acid Hives,Rash,Unknown (See Comments) Medium 02/27/2016 Medications potassium chloride (K-DUR,KLOR-CO N) 20 MEQ CR tablet Take 1 tablet by mouth Daily. Active levothyroxine (SYNTHROID, LEVOTHROID) 75 MCG tablet Take 1 tablet by mouth Daily. Active simvastatin (ZOCOR) 40 MG tablet Take 1 tablet by mouth Every Night. Active traMADol (ULTRAM) 50 MG tablet Take 1 tablet by mouth Every 6 (Six) Hours As Needed for Moderate Pain. Active aspirin 81 MG tablet Take 1 tablet by mouth Daily. Active Cholecalcifero l (VITAMIN D3) 5000 units capsule capsule Take 1 capsule by mouth Every Other Day. Active Multiple Vitamin (MULTI-VITAMIN PO) Take 1 tablet by mouth Daily. Active furosemide (LASIX) 20 MG tablet Take 1 tablet by mouth Daily. Active spironolactone (ALDACTONE) 25 MG tablet Take 1 tablet by mouth Daily. Active rivaroxaban (XARELTO) 20 MG tablet Take 1 tablet by mouth Daily With Dinner. First dose on Saturday evening February 16, 2019 30 tablet 6 9 Active ferrous sulfate 140 (45 Fe) MG tablet controlled-rel ease tablet Take 1 tablet by mouth Daily With Breakfast. Active polyethylene glycol (MIRALAX) 17 g packet Take 17 g by mouth Daily As Needed. Active alendronate (FOSAMAX) 10 MG tablet TAKE ONE TABLET BY MOUTH ONCE A WEEK FOR bones 2 Active eszopiclone (LUNESTA) 1 MG tablet Take 1 tablet by mouth As Needed for Sleep. 4 Active sotalol (BETAPACE) 80 MG tablet TAKE ONE TABLET BY MOUTH EVERY TWELVE HOURS 240 tablet 5 Active sotalol (BETAPACE) 80 MG tablet TAKE ONE TABLET BY MOUTH EVERY TWELVE HOURS 180 tablet 3 4 025 Discontinued Active Problems Problem Noted Date Diagnosed Date Chronic anticoagulation 09/21/2020 Pericarditis 02/11/2019 Essential hypertension 11/06/2018 Persistent atrial fibrillation 10/15/2018 NORBERTO (obstructive sleep apnea) 10/15/2018 Encounters Date Type Department Care Team Description 06/11/2025 Refill [facility] [address] [place] [address] Rashaun Alanis PA Med Refill from Last 3 Months Family History Medical History Relation Name Comments Lung cancer Brother 1 Lung cancer Brother 2 Lung cancer Brother 3 Alzheimer's disease Brother 5 Deep vein thrombosis Brother 5 Heart attack Father Alzheimer's disease Maternal Grandfather Diabetes Maternal Grandmother Diabetes Mother Heart failure Mother No Known Problems Paternal Grandfather No Known Problems Paternal Grandmother No Known Problems Sister Breast cancer Neg Hx Ovarian cancer Neg Hx Relation Name Status Comments Brother 1 3 with can cer Brother 2 Brother 3 Brother 4 killed in the [facility] Brother 5 Alive Father Maternal Grandfather Maternal Grandmother Mother Paternal Grandfather Paternal Grandmother Sister Alive Social History Tobacco Use Types Packs/Day Years Used Date Smoking Tobacco: Never Passive Smoke Exposure: Never Smokeless Tobacco: Never Tobacco Cessation:Counseling Given: Not Answered Alcohol Use Standard Drinks/Week Comments No 0 (1 standard drink = 0.6 oz pur e alcohol) AUDIT-C Answer Date Recorded Q1: How often do you have a drink containing alc ohol? Never 09/21/2020 Average Number of Drinks Not on file 021 Frequency of Binge Drinking Not on file 09/09 Comments No Sex and Gender Information Value Date Recorded Sex Assigned at Not on file Legal Sex Female 12:59 PM EDT Gender Identity Not on file Sexual Orientation Not on file Last Filed Vital Signs Vital Sign Reading Time Taken Comments Blood Pressure 100/60 08/19/2024 1:20 PM EST Pulse 65 08/19/2024 1:20 PM EST Temperature 36.8 C (98.3 F) 07/15/2020 2:21 PM EST Respiratory Rate 18 03/11/2019 1:04 PM EDT Oxygen Saturation 97% 08/19/2024 1:20 PM EST Inhaled Oxygen Concentration - - Weight 109 kg (239 lb 3.2 oz) 08/19/2024 1:20 PM EST Height 172.7 cm (5' 8 ) 08/19/2024 1:20 PM EST Body Mass Index 36.37 08/19/2024 1:20 PM EST Plan of Treatment Upcoming Encounters Date Type Department Care Team (Late st Contact Info) Description 08/25/2025 2:45 PM EST Office Visit [facility] [address] [facility] [address] [place] [address] Lefty Hurst MD [address] [facility] [place] [address] Health Maintenance Due Date Last Done Comments DXA SCAN 1955 COLOGUARD 1998 COLON CANCER SCREENING 5 YEA R SIGMOIDOSCOPY 1998 COLONOSCOPY 1998 COLORECTAL CANCER SCREENING 1998 CT COLONOGRAPHY 1998 FECAL OCCULT BLOOD TEST 1998 FIT Testing (1 year) 1998 Pneumococcal Vaccine 50+ (1 of 1 - PCV) 2003 ZOSTER VACCINE (1 of 2) 2003 TDAP/TD VACCINES (2 - Tdap) 11/10/2006 11/10/1996 ANNUAL WELLNESS VISIT 10/13/2018 HEPATITIS C SCREENING 10/13/2018 INFLUENZA VACCINE 04/09/2025 06/10/2024, , 07/03/2016 COVID-19 Vaccine (2 5 season) 2025 MAMMOGRAM 03/10/2027 03/10/2025, 02/08, 02/18/2024, Additional history exists Procedures Procedure Name Priority Date/Time Associated Diagnosis Comments MAMMO SCREENING DIGITAL TOMOSYNTHESIS BILATERAL W CAD Routine 03/05/2025 1:57 PM EDT Screening mammogram for breast cancer from Last 3 Months or Most Recently Relevant to Health Maintenance Results * Mammo Screening Digital Tomosynthesis Bilateral With CAD (03/05/2025 1:57 PM EDT) Anatomical Region Laterality Modality Breast N/A Mammography 03/10/2025 4:48 PM EDT Impressions 03/10/2025 4:50 PM EDT No findings suspicious for malignancy. ACR BI-RADS CATEGORY: 1, NEGATIVE RECOMMENDATION: Yearly mammogram, yearly clinical breast exam, and encourage self breast awareness. CAD was used. The standard false negative rate of mammography is between 10% and 25%. Complex patterns or increased breast density will markedly elevate the false negative rate of mammography. A letter, in lay terminology, with the results of this exam will be mailed to the patient. If there is a palpable area of concern, biopsy should be considered regardless of imaging findings. 03/10/2025 4:50 PM by Lakisha Srivastava MD on Narrative 03/10/2025 4:50 PM EDT ROUTINE DIGITAL SCREENING MAMMOGRAM WITH TOMOSYNTHESIS HISTORY: Routine screening. IMAGE COMPARISON: Extending to 2021. TECHNIQUE: Low dose full field digital breast tomosynthesis imaging was performed with 2D and 3D acquisitions consisting of bilateral CC and MLO views. FINDINGS: There are scattered fibroglandular densities. The fibroglandular pattern appears stable. There is no mass, worrisome microcalcifications, or architectural distortion to suggest development of malignancy. us Marcio Sainz MD IMG MAMMOGRAPHY ORDERABLES Pema l Result from Last 3 Months or Most Recently Relevant to Health Maintenance Insurance [employer] MEDICARE ADVANTAGE PPO Advance Directives * CPR (Attempt to Resuscitate) (Latest Code Status on File) Date Activated Date Inactivated Comments 02/10/2019 2:48 PM 02/12/2019 5:26 PM Question Answer Comments Code Status (Patient has no pulse and is not breathing): CPR (Attempt to Resuscitate) Medical Interventions (Patie nt has pulse or is breathing): Full Care Teams Fitness Technician Relationship Specialty Start Date End Date Marcio Sainz MD [address] [place] [address] PCP - General Family Medicine 05/10/22
--- OUTSIDE RECORDS SUMMARY | 2025-06-24 12:37 | XMS_ITS | Encounter Summary ---
Author Organization [facility] Address [address] [place] [address] Care Team Providers Care Outbound Telemarketing Representative Name Role Phone Marcio Sainz MD Primary Care Provider [phone] Reason for Visit * Reason Comments Med Refill Encounter Details Date Type Department Care Team (Late Contact Info) Description 06/11/2025 Refill [facility] [address] [facility] [address] [place] [address] Rashaun Alanis PA [address] [facility] [address] [place] [address] Med Refill Social History Tobacco Use Types Packs/Day Years Used Date Smoking Tobacco: Never Passive Smoke Exposure: Never Smokeless Tobacco: Never Alcohol Use Standard Drinks/Week Comments No 0 [...] on file Sexual Orientation Not on file documented as of this encounter Plan of Treatment Upcoming Encounters Date Type Department Care Team (Late Contact Info) Description 08/25/2025 2:45 PM EST Office Visit [facility] [address] [facility] [address] [place] [id number] Lefty Hurst MD [address] [facility] [address] [place] [address] documented as of this encounter Visit Diagnoses Not on filedocumented in this encounter Care Teams Outbound Telemarketing Representative Relationship Specialty Start Date End Date Marcio Sainz MD [address] [place] [address] PCP - General Family Medicine 05/10/22 documented as of this encounter
--- OUTSIDE RECORDS SUMMARY | 2025-06-24 12:37 | XMS_ITS | Clinical Summary ---
Author Organization [facility] Address [address] [place] [address] Care Team Providers Care Machine Welder Name Role Phone Marcio Sainz MD Primary Care Provider [phone] Juvenal Lara MD Unavailable [phone] Allergies Active Allergy Reactions Criticality Noted Date Comments Ibuprofen Rash,Unknown - Patie nt states they do not know rxn details,Hives Medium 02/27/2016 Mefenamic Acid Rash,Unknown - Patie nt states they do not know rxn details,Hives Medium 02/27/2016 Medications aspirin 81 MG EC tablet Take by mouth 1 (one) time each day. 6 Active Carbonyl Iron (IRON CHEWS PEDIATRIC PO) Take by mouth 1 (one) time each day. Active levothyroxine (Synthroid, Levoxyl) 75 MCG tablet Take by mouth 1 (one) time each day. 6 Active potassium chloride (Klor-Con) 20 MEQ packet Take by mouth 1 (one) time each day. Active simvastatin (Zocor) 40 MG tablet Take by mouth every night. 6 Active sotalol (Betapace) 80 MG tablet Take by mouth 1 (one) time each day. Active spironolactone (Aldactone) 25 MG tablet Take by mouth 1 (one) time each day. Active traZODone (Desyrel) 50 MG tablet Take by mouth every night. Active rivaroxaban (Xarelto) 20 MG tablet Take by mouth 1 (one) time each day. Active Cholecalciferol (VITAMIN D3 PO) Take by mouth 1 (one) time each day. Active furosemide (Lasix) 20 MG tablet Take 1 tablet (20 mg) by mouth 2 (two) times a day. 2 Active traMADol (Ultram) 50 MG tablet TAKE ONE TABLET BY MOUTH EVERY 6 HOURS NEEDED FOR PAIN MAY CAUSE DROWSINESS 2 Active alendronate (Fosamax) 10 MG tablet TAKE ONE TABLET BY MOUTH ONCE A WEEK FOR bones 2 Active multivitamin with minerals (Cerovite) 18-400 mg-mcg tablet tablet Take 1 tablet by mouth 1 (one) time each day. Active polyethylene glycol (Miralax) 17 g packet Take 17 g by mouth 1 (one) time each day. Active Wheat Dextrin (benefiber drink mix) packet Take 1 packet by mouth 3 (three) times a day with meals. Active ferrous sulfate ER (Iron Slow Release) 140 (45 Fe) MG ER tablet Take 1 tablet (140 mg) by mouth 1 (one) time each day with breakfast. Do not crush, chew, or split. Active Active Problems Problem Noted Date Diagnosed Date Endometrial cancer 08/16/2021 Cancer Staging:Clinical stage from 07/27/2020:FIGO Stage IA, calculated as Stage Unknown(cT1a, cNX, cM0) - Unsigned Atrial fibrillation 01/15/2021 Venous thrombosis 01/15/2021 Status post total hysterecto my and bilateral salpingo-oophorectomy (BSO) 07/27/2020 Overview (01/15/2021): Acquired absence of both cervix and uterus DDD (degenerative disc disease), lumbar 04/26/20 16 Spondylolisthesis, grade 1 04/26/2016 Low back pain 04/24/2016 Immunizations Immunization Administration Dates Next Due Influenza, Unspecified 06/07/2021 Influenza, injectable, quadrivalent, preservativ e free 07/03/2016 TD (adult), 2 Lf tetanus tox oid, preservative free, adsorbed 11/10/1996 Family History Medical History Relation Name Comments Lung cancer Brother FH: lung cancer Relation Name Status Comments Brother Social History Tobacco Use Types Packs/Day Years Used Date Smoking Tobacco: Never Passive Smoke Exposure: Past Smokeless Tobacco: Never Tobacco Cessation:Counseling Given: Not Answered Alcohol Use Standard Drinks/Week Comments Never 0 (1 standard drink = 0.6 oz pur e alcohol) PHQ-2 Answer Date Recorded Patient Health Questionnaire-2 Score 0 08/17/2024 PHQ-2A Answer Date Recorded Patient Health Questionnaire-2 Score 0 08/16/2023 Comments No Sex and Gender Information Value Date Recorded Sex Assigned at Not on file Legal Sex Female 6:05 PM EDT Gender Identity Not on file Sexual Orientation Not on file Last Filed Vital Signs Vital Sign Reading Time Taken Comments Blood Pressure 114/76 08/17/2024 12:36 PM EST Pulse 59 08/17/2024 12:36 PM EST Temperature 36.9 C (98.4 F) 08/17/2024 12:36 PM EST Respiratory Rate 18 08/17/2024 12:36 PM EST Oxygen Saturation 96% 08/17/2024 12:36 PM EST Inhaled Oxygen Concentration - - Weight 109 kg (239 lb 13.8 oz) 08/17/2024 12:36 PM EST Height 172.7 cm (5' 8 ) 08/17/2024 12:36 PM EST Body Mass Index 36.47 08/17/2024 12:36 PM EST Plan of Treatment Upcoming Encounters Date Type Department Care Team (Late st Contact Info) Description 08/17/2025 1:00 PM EST Office Visit [facility] [address] [place] [address] BlackhawkEmelia miller S, AC[employer] VICE PRESIDENT [address] [facility] [address] [place] [address] Health Maintenance Due Date Last Done Comments [facility]-Bone Density Scan 1955 [facility]-Hepatitis C Screening 1955 [facility]-Medicare Annual Wellness (AWV) 1955 [facility]-Infant/Child/Adol SDOH Screenings 1955 [id number] Vaccine (#1) 1958 [facility]-Obesity Intervention 1959 [facility]- SDOH Screenings 1971 [facility]-Adult SDOH Screenings 1971 [facility]-Pneumococcal Vaccine: 50+ Years (1 of 2 - PCV) 1972 [facility]-Zoster Vaccines (1 of 2) 1972 [facility]-DTaP,Tdap,and Td Vaccines (1 - Tdap) 11/11/1996 11/10/1996 CT Colonography 1998 Colonoscopy 1998 FIT-DNA 1998 FIT 1998 FOBT 1998 Sigmoidoscopy 1998 [facility]-Colorectal Cancer Screening 1998 [facility]-Influenza Vaccine (#1) 05/10/202506/10, 06/07/2021, 07/03/2016 [facility]-Depression Screening 08/17/2025 08/17/2024, 02/07 [facility]-Breast Cancer Screening 03/05/202702/08, 03/05/2025, 02/18/2024, Additional history exists [facility]-RSV Vaccine: 60+ Years or Completed 06/10/2024 HPV Vaccines Aged Out No longer eligi ble based on patient's age to complete this topic [facility]-HIB Vaccines Aged Out No longer e ligible based on patient's age to complete this topic [facility]-Hepatitis A Vaccines Aged Out No longer eligible based on patient's age to complete this topic [facility]-IPV Vaccines Aged Out No longer e ligible based on patient's age to complete this topic [facility]-Rotavirus Vaccines Aged Out No lo nger eligible based on patient's age to complete this topic Insurance [employer]ICARE Care Teams Machine Welder Relationship Specialty Start Date End Date Marcio Sainz MD [address] [place] [address] [address] [place] [address] PCP - General 01/20/21 Juvenal Lara MD [address] [place] [address] Referring Physician 08/21/21
--- NOTE | 2025-06-24 13:00 | US_ITS ---
FINAL REPORT TECHNIQUE: Sonographic images of the thyroid gland were obtained in the longitudinal and transverse planes. CLINICAL HISTORY: history of thyroid nodules COMPARISON: 06/16/2024 FINDINGS: The right lobe measures 1.6 x 4.4 x 2.2 cm. The right lobe is diffusely heterogeneous. The previously measured hypoechoic nodule is less conspicuous on today's exam and is not measurable. The left lobe measures 1.5 x 3.5 x 1.4 cm. The left lobe is heterogeneous. The 8 mm mixed cystic and solid nodule is unchanged. Subcentimeter colloid cyst is unchanged. Several other subcentimeter ill-defined nodules are also stable. The isthmus measures 5 mm. This is normal. IMPRESSION: Heterogeneous thyroid with stable left thyroid nodules measuring less than 1 cm. Previously noted right nodule is less well-appreciated on today's exam. Reviewed, Interpreted and Dictated by Tawnya Trujillo MD Transcribed by Rosangela Salcedo Authenticated and . [facility]
[2025-06-24 15:06] LABS: Free T4 (Free Thyroxine) 1.17 ng/dl (0.78-2.19)
[2025-06-24 15:20] LABS: Thyroid Stimulating Hormone 1.26 uIU/mL (0.465-4.68)
[2025-06-24 15:23] LABS: Ferritin 107 ng/ml (11.1-264)
== END 2025-06-24 23:59 | disposition home or self-care (01) ==
LOC: RAD 12:35
PROVIDERS: Specialist; PCP Family Medicine; Visit Provider Nurse Practitioner
DX: E04.2 Nontoxic multinodular goiter (principal); E83.10 Disorder of iron metabolism, unspecified
CPT/HCPCS: 36415; 76536; 82728; 84439; 84443